=== PATIENT | male | born 1935 | race Two or more races ===

== ENCOUNTER 2018-11-06 02:20 | Emergency (ER) | payer SELFPAY ==
[~2018-11-06] VITALS: Ht 170.2 cm; Wt 72.6 kg
[2018-11-06 07:41] VITALS: BP 127/55
== END 2018-11-06 08:25 | disposition home or self-care (01) ==
LOC: EDBD 02:20 → ER 02:27
CPT/HCPCS: 72125; 72128

== ENCOUNTER 2019-02-13 02:06 | Emergency (ER) | payer OTHER, MEDICAID ==
[~2019-02-13] VITALS: Ht 167.6 cm; Wt 122.5 kg
[~2019-02-13 02:06] MED LIST: BACL10TA; CARV3.1240; FIN5T; FLUO10TA18; GABA-339; GABA-339 PO; HYDR1TAB97; LEVO75TA6; METF-370; MIRA50TA; NAP500T; OME20T PO; SITA100T7; TAMS0.4C36
[2019-02-13 02:56] LABS: Basophils # (auto) 0.1 uL; Eosinophils # (auto) 0.2 uL; Eosinophils % (auto) 3.2 % (0.0-7.0); Hematocrit 37.2 % (41.0-53.0); Hemoglobin 12.6 g/dL (13.5-17.5); Lymphocytes # (auto) 1.4 uL; Lymphocytes % (auto) 26.6 % (10.0-50.0); Mean Corpuscular Hemoglobin 29.7 pg (28.0-32.0); Mean Corpuscular Hgb Conc. 33.9 g/dL (32.0-36.0); Mean Corpuscular Volume 87.7 fL (80.0-100.0); Monocytes # (auto) 0.7 uL; Monocytes % (auto) 13.8 % (0.0-12.0); Neutrophils # (auto) 2.9 uL; Neutrophils % (auto) 55.4 % (37.0-80.0); Nucleated Red Blood Cells % 0.1 %; Platelet Count (auto) 189 10^3/uL (140-450); Red Blood Cells 4.24 10^6/uL (4.5-5.90); White Blood Cell 5.3 10^3/uL (4.4-10.8)
[2019-02-13 03:20] LABS: Alanine Aminotransferase 16 U/L (16-61); Albumin 3.3 g/dL (3.4-5.0); Anion Gap 6 (5-15); Aspartate Aminotransferase 15 U/L (15-37); BUN/Creatinine Ratio 29.5; Blood Urea Nitrogen 28 mg/dL (7-18); Calcium 8.5 mg/dL (8.5-10.1); Carbon Dioxide 27 mmol/L (21-32); Chloride 108 mmol/L (98-107); GFR African American 98 mL/min; GFR Non-African American 81 mL/min; Glucose 123 mg/dL (74-106); Potassium 3.7 mmol/L (3.5-5.1); Sodium 141 mmol/L (136-145)
[2019-02-13 03:25] LABS: Alkaline Phosphatase 61 U/L (45-117); Bilirubin, Total 0.3 mg/dL (0.2-1.0); Total Protein 6.6 g/dL (6.4-8.2)
[2019-02-13] MEDS ORDERED: MORPHINE SULF INJ 2 MG/ML SYRINGE 1ML IV ONE (03:30)
[2019-02-13] MEDS ORDERED: ASPirin-EC 325mg tab PO ONE (03:30)
[2019-02-13] MEDS ORDERED: NITROGLYCERIN 0.4 MG SL TAB SL ONE (03:30)
[2019-02-13] MEDS ORDERED: LORazepam 2MG/ML-1ML VIAL IV ONE (04:00)
[2019-02-13 04:18] LABS: INR 1.09 (0.9-1.15); Partial Thromboplastin Time 33.1 sec (23.78-33.04); Prothrombin Time 11.6 sec (9.27-12.13)
[2019-02-13 09:40] VITALS: BP 113/44
== END 2019-02-13 09:58 | disposition home or self-care (01) ==
LOC: EDBD 02:06 → ER 02:10
DX: I20.9 Angina pectoris, unspecified (principal); J44.9 Chronic obstructive pulmonary disease, unspecified; E11.9 Type 2 diabetes mellitus without complications; K21.9 Gastro-esophageal reflux disease without esophagitis; I25.2 Old myocardial infarction; E07.9 Disorder of thyroid, unspecified; I11.0 Hypertensive heart disease with heart failure; I50.9 Heart failure, unspecified; Z90.49 Acquired absence of other specified parts of digestive tract; Z95.1 Presence of aortocoronary bypass graft; Z88.0 Allergy status to penicillin; Z88.8 Allergy status to other drugs, medicaments and biological substances; Z79.899 Other long term (current) drug therapy
CPT/HCPCS: 36415; 71045; 80053; 82962; 83880; 84484; 85025; 85610; 85730; 93005; 94761; 96374; 99284; J2270

== ENCOUNTER 2019-08-21 08:13 | Inpatient (IN) | payer OTHER, MEDICAID ==
[~2019-08-21] VITALS: Ht 167.6 cm; Wt 118.7 kg
[2019-08-21 08:53] LABS: Basophils # (auto) 0 uL; Basophils % (auto) 0.3 % (0.0-2.0); Eosinophils # (auto) 0.1 uL; Eosinophils % (auto) 0.8 % (0.0-7.0); Hematocrit 43.6 % (41.0-53.0); Lymphocytes # (auto) 1.1 uL; Lymphocytes % (auto) 10.5 % (10.0-50.0); Mean Corpuscular Hemoglobin 30.9 pg (28.0-32.0); Mean Corpuscular Hgb Conc. 34.5 g/dL (32.0-36.0); Mean Corpuscular Volume 89.6 fL (80.0-100.0); Monocytes % (auto) 9.7 % (0.0-12.0); Neutrophils # (auto) 7.9 uL; Neutrophils % (auto) 78.7 % (37.0-80.0); Nucleated Red Blood Cells % 0.1 %; Platelet Count (auto) 228 10^3/uL (140-450); Red Blood Cells 4.86 10^6/uL (4.5-5.90); Red Cell Distribution Width 14.9 % (11.8-14.3); White Blood Cell 10.1 10^3/uL (4.4-10.8)
[2019-08-21] MEDS ORDERED: SODIUM CHLORIDE 0.9% 1,000 ML IV ONE (08:58)
[2019-08-21] MEDS ORDERED: PROMETHAZINE HCL 25 MG/ML 1ML IV PRN (09:00)
[2019-08-21] MEDS ORDERED: HYDROmorphone HCL 2 MG/ML VL IV ONE (09:00)
[2019-08-21] MEDS ORDERED: IOHEXOL 300 MG/ML 100ML BOTTLE IJ ONE (09:06)
[2019-08-21 09:14] LABS: Albumin 3.8 g/dL (3.4-5.0); Anion Gap 9 (5-15); BUN/Creatinine Ratio 23.4; Blood Urea Nitrogen 25 mg/dL (7-18); Calcium 9.2 mg/dL (8.5-10.1); Carbon Dioxide 32 mmol/L (21-32); Chloride 96 mmol/L (98-107); GFR African American 85 mL/min; GFR Non-African American 70 mL/min; Glucose 155 mg/dL (74-106); Potassium 3.5 mmol/L (3.5-5.1); Sodium 137 mmol/L (136-145)
[2019-08-21 09:27] LABS: Alanine Aminotransferase 15 U/L (16-61); Alkaline Phosphatase 68 U/L (45-117); Aspartate Aminotransferase 17 U/L (15-37); Bilirubin, Total 0.6 mg/dL (0.2-1.0); Magnesium 1.9 mg/dL (1.6-2.6); Total Protein 7.8 g/dL (6.4-8.2)
[2019-08-21 14:29] LABS: Urine Bacteria NONE SEEN /hpf (None Seen); Urine Blood Negative /uL (Negative); Urine Mucus FEW (None Seen); Urine Specific Gravity 1.032 (1.001-1.035); Urine WBC 5 /hpf (0 - 3)
[2019-08-21] MEDS ORDERED: GASTROGRAFIN 120 ML SOL ONE (15:21)
[2019-08-21] MEDS ORDERED: diphenhdrAMINE HCL 50 MG/1 ML VL IV ONE (16:00)
[2019-08-21] MEDS ORDERED: methylPREDNISolone SOD SUCC 125 MG/2 ML VL IV ONE (16:00)
[2019-08-21] MEDS ORDERED: NITROGLYCERIN 0.4 MG SL TAB SL PRN (18:45)
[2019-08-21] MEDS ORDERED: DEXTROSE (50%) 50ML SYRG IV PRN (19:00)
[2019-08-21] MEDS ORDERED: ONDANSETRON HCL 4 MG/2 ML VIAL IM PRN (19:00)
[2019-08-21 19:45] VITALS: BP 137/68
--- NOTE | 2019-08-21 19:45 | NUR ---
MS admit from [facility] admitted to tele/MS. Patient oriented to Augustina Sapp RN primary RN, unit, room, bed, and unit policies regarding patient care and visiting hours. Patient weighed by bedscale and encouraged to call if they need something. All questions and concerns addressed, patient verbalized understanding. Patient on LCS to left nare. Bedside commode at bedside. Bed is in lowest locked position with bed rails up x2 and call light is within reach of the patient.
[2019-08-21 20:32] VITALS: BP 137/68
--- NOTE | 2019-08-21 20:45 | NUR ---
CALLED MD FOR PAIN MEDICATION: Patient had abdominal pain that was 9/10 on pain scale asking for pain medication. Patient had no pain medication. Called Dr. Jimenez through PBX and connected to doctor Joni covering for Barbara. Orders received. To place and carry out orders. Addendum: 08/22/19 at 0701 by Augustina Sapp RN RN order for morphine 2mg [id number] prn iv.
[2019-08-21] MEDS: MORPHINE SULF INJ 2 MG/ML SYRINGE 1ML IV PRN (21:06)
[2019-08-21] MEDS: SODIUM CHLORIDE 0.9% 1,000 ML IV SCH (21:07)
[2019-08-21] MEDS: CARVEDILOL 3.125 MG TAB PO SCH (21:42)
[2019-08-21] MEDS ORDERED: INFLUENZA QUAD 2019-2020 0.5ml SYRG IM ONE (21:45)
--- NOTE | 2019-08-21 21:45 | NUR ---
EMERGENCY CONTACT NUMBERS PROVIDED: JESUS-DAUGHTER: [phone] ADRIANA-SON: [phone] ÓSCAR-DAUGHTER: [phone] PASSWORD: "DAUGHTER"
[2019-08-21] MEDS: InsuLIN REG 1unit/0.01ml Soln (100units/ml) SC SCH (23:37)
[2019-08-21] MEDS: ACCU-CHEK COMFORT CURVE STRIP VI SCH (23:37)
[2019-08-22 05:21] VITALS: BP 124/51
--- NOTE | 2019-08-22 05:30 | NUR ---
Large bowel movement: Patient had large bowel movement in bedside commode that is both brown liquidy stool and firm formed stools in commode. Patient stated "I'm feeling a lot better now that I had that bowel moment." Instructed patient that he is still NPO till cleared by the Doctor. Patient verbalized understanding. Resting in bed with breaths even and unlabored.
[2019-08-22] MEDS: InsuLIN REG 1unit/0.01ml Soln (100units/ml) SC SCH ×2 (06:00→11:36)
--- NOTE | 2019-08-22 06:54 | NUR ---
Patient drained 150ml of clear fluid from NG-tube suction at [facility].
[2019-08-22 06:57] LABS: Basophils # (auto) 0 uL; Basophils % (auto) 0.1 % (0.0-2.0); Eosinophils # (auto) 0 uL; Hematocrit 41.9 % (41.0-53.0); Hemoglobin 14.3 g/dL (13.5-17.5); Lymphocytes # (auto) 0.8 uL; Lymphocytes % (auto) 11.6 % (10.0-50.0); Mean Corpuscular Hemoglobin 30.5 pg (28.0-32.0); Mean Corpuscular Hgb Conc. 34.1 g/dL (32.0-36.0); Mean Corpuscular Volume 89.5 fL (80.0-100.0); Monocytes # (auto) 0.2 uL; Monocytes % (auto) 2.6 % (0.0-12.0); Neutrophils # (auto) 5.9 uL; Neutrophils % (auto) 85.7 % (37.0-80.0); Platelet Count (auto) 203 10^3/uL (140-450); Red Blood Cells 4.68 10^6/uL (4.5-5.90); Red Cell Distribution Width 15.1 % (11.8-14.3); White Blood Cell 6.9 10^3/uL (4.4-10.8)
[2019-08-22] MEDS: ACCU-CHEK COMFORT CURVE STRIP VI SCH ×2 (07:03→11:35)
[2019-08-22 07:13] LABS: BUN/Creatinine Ratio 34.4; Calcium 8.3 mg/dL (8.5-10.1); Potassium 3.2 mmol/L (3.5-5.1)
--- NOTE | 2019-08-22 07:30 | NUR ---
Opening Shift Note RECEIVED REPORT FROM NOC RN. Assumed care of patient, awake and alert. No S/S of distress/SOB or pain. BED IN LOWEST, LOCKED POSITION WITH SIDERAILS UP x2 AND CALL LIGHT WITHIN REACH. Instructed on POC and to call for assist PRN, will continue to monitor for changes Q1hr and PRN.
[2019-08-22 08:15] VITALS: BP 142/56
[2019-08-22] MEDS: MORPHINE SULF INJ 2 MG/ML SYRINGE 1ML IV PRN (08:38)
[2019-08-22 09:00] VITALS: BP 142/56
[2019-08-22] MEDS: CARVEDILOL 3.125 MG TAB PO SCH (09:44)
[2019-08-22] MEDS: SODIUM CHLORIDE 0.9% 1,000 ML IV SCH (09:54)
[2019-08-22] MEDS ORDERED: FINASTERIDE 5 MG TAB PO SCH (10:00)
[2019-08-22] MEDS ORDERED: ENOXAPARIN SOD 40 MG/0.4 ML SYRINGE SC SCH (10:00)
[2019-08-22] MEDS ORDERED: ACETAMINOPHEN 325 MG TAB PO PRN (12:00)
--- NOTE | 2019-08-22 12:15 | NUR ---
NGT removal NGT removed per MD/GROUP ACCOUNT DIRECTOR order following explanation and instruction to patient. Patient verbalized understanding prior to removal. Patient tolerated well.
--- NOTE | 2019-08-22 12:56 | NUR ---
o/c note called [facility] and reached answering service who is to contact their CM Delfino
[2019-08-22 13:00] VITALS: BP 139/71
--- NOTE | 2019-08-22 13:11 | NUR ---
o/c note: Asked primary RN to fax to Giovanny at [facility] [phone] H&P, d/c summary, for HH order
--- NOTE | 2019-08-22 13:41 | NUR ---
HOME HEALTH PACKET FAXED TO [facility] PER O/C HECTOR NASCIMENTO.
[2019-08-22 14:50] VITALS: BP 139/71
--- NOTE | 2019-08-23 15:31 | NUR ---
ANTONI Resendez at [facility] has accepted pt for safety eval
== END 2019-08-22 15:38 | disposition home health service (06) | DRG 389 ==
LOC: EDBD 08:13 → ER 08:13 → OVERFLOW 08:14 → CENTRAL 19:49
PROVIDERS: ADMIT Hospitalist; ATTEND Hospitalist
DX: K56.600 Partial intestinal obstruction, unspecified as to cause (principal); I50.22 Chronic systolic (congestive) heart failure; K43.0 Incisional hernia with obstruction, without gangrene; Z68.41 Body mass index [BMI] 40.0-44.9, adult; K80.20 Calculus of gallbladder without cholecystitis without obstruction; E11.65 Type 2 diabetes mellitus with hyperglycemia; E03.9 Hypothyroidism, unspecified; E11.51 Type 2 diabetes mellitus with diabetic peripheral angiopathy without gangrene; E66.01 Morbid (severe) obesity due to excess calories; I11.0 Hypertensive heart disease with heart failure; I25.10 Atherosclerotic heart disease of native coronary artery without angina pectoris; I25.708 Atherosclerosis of coronary artery bypass graft(s), unspecified, with other forms of angina pectoris; J44.9 Chronic obstructive pulmonary disease, unspecified; E11.42 Type 2 diabetes mellitus with diabetic polyneuropathy; K21.9 Gastro-esophageal reflux disease without esophagitis; Z85.038 Personal history of other malignant neoplasm of large intestine; Z90.49 Acquired absence of other specified parts of digestive tract; Z79.899 Other long term (current) drug therapy; Z88.0 Allergy status to penicillin; Z88.8 Allergy status to other drugs, medicaments and biological substances; Z91.041 Radiographic dye allergy status; I25.2 Old myocardial infarction
CPT/HCPCS: 36415; 71046; 74176; 74250; 80048; 80053; 81001; 82962; 83690; 83735; 84443; 84484; 85025; 93005; 94761; 96361; 96372; 96374; 96375; G0378; J1815

== ENCOUNTER 2022-04-08 13:21 | Inpatient (IN) | payer OTHER, MEDICAID ==
[~2022-04-08] VITALS: Ht 170.2 cm; Wt 120.8 kg
[~2022-04-08 13:21] MED LIST changes: -BACL10TA; -GABA-339
[2022-04-08] MEDS ORDERED: ONDANSETRON HCL 4 MG/2 ML VIAL IV ONE (13:45)
[2022-04-08] MEDS ORDERED: MORPHINE SULFATE INJ 2 MG/ml SYRG IV ONE (13:45)
[2022-04-08] MEDS ORDERED: SODIUM CHLORIDE 0.9% 1,000 ML IV ONE ×2 (13:45→17:30)
[2022-04-08 16:19] LABS: Basophils # (auto) 0.1 10 ^3/uL (0-0.2); Basophils % (auto) 0.5 % (0.0-2.0); Eosinophils # (auto) 0.1 10 ^3/uL (0-0.8); Hematocrit 43.7 % (41.0-53.0); Hemoglobin 14.8 g/dL (13.5-17.5); Lymphocytes # (auto) 1.6 10 ^3/uL (0.4-5.4); Mean Corpuscular Hgb Conc. 33.9 g/dL (32.0-36.0); Mean Corpuscular Volume 85.6 fL (80.0-100.0); Monocytes # (auto) 0.8 10 ^3/uL (0-1.3); Monocytes % (auto) 6.8 % (0.0-12.0); Neutrophils # (auto) 9.1 10 ^3/uL (1.6-8.6); Neutrophils % (auto) 77.7 % (37.0-80.0); Nucleated Red Blood Cells % 0.1 %; Red Blood Cells 5.11 10^6/uL (4.5-5.90); Red Cell Distribution Width 14.9 % (11.8-14.3); White Blood Cell 11.6 10^3/uL (4.4-10.8)
[2022-04-08 16:36] LABS: Albumin 3.4 g/dL (3.4-5.0); BUN/Creatinine Ratio 26.4; Calcium 9.4 mg/dL (8.5-10.1); Potassium 3.4 mmol/L (3.5-5.1)
[2022-04-08 16:39] LABS: Bilirubin, Total 0.5 mg/dL (0.2-1.0); Total Protein 7.7 g/dL (6.4-8.2)
[2022-04-08] MEDS ORDERED: ONDANSETRON HCL 4 MG/2 ML VIAL IV PRN (17:30)
[2022-04-08] MEDS ORDERED: NITROGLYCERIN 0.4 MG SL TAB SL PRN (17:30)
[2022-04-08] MEDS ORDERED: hydrALAZINE HCL 20 MG/ML VL IV PRN (17:30)
[2022-04-08] MEDS ORDERED: MORPHINE SULFATE INJ 2 MG/ml SYRG IV PRN (17:30)
[2022-04-08] MEDS ORDERED: PIPERACILLIN-TAZOB 3.375GM 100 ML IV SCH (18:00)
[2022-04-08 18:04] LABS: INR 1.1 (0.9-1.15)
[2022-04-08 21:30] LABS: Urine Bacteria FEW /hpf (None Seen); Urine Blood 2+ /uL (Negative); Urine WBC 1 /hpf (0 - 3)
[2022-04-08] MEDS: D5W/SOD CHL 0.45%/KCL 40MEQ 1,000 ML IV SCH (22:47)
[2022-04-09 05:00] VITALS: BP 126/48
[2022-04-09 05:55] LABS: INR 1.1 (0.9-1.15); Partial Thromboplastin Time 32.9 sec (23.6-33.0)
[2022-04-09 05:58] LABS: BUN/Creatinine Ratio 18.1; Calcium 8.4 mg/dL (8.5-10.1); Potassium 3.6 mmol/L (3.5-5.1)
[2022-04-09 06:03] LABS: Basophils # (auto) 0.1 10 ^3/uL (0-0.2); Basophils % (auto) 0.6 % (0.0-2.0); Eosinophils # (auto) 0.1 10 ^3/uL (0-0.8); Eosinophils % (auto) 1.6 % (0.0-7.0); Hematocrit 39.5 % (41.0-53.0); Hemoglobin 13.6 g/dL (13.5-17.5); Lymphocytes # (auto) 1.4 10 ^3/uL (0.4-5.4); Lymphocytes % (auto) 16.6 % (10.0-50.0); Mean Corpuscular Hemoglobin 29.2 pg (28.0-32.0); Mean Corpuscular Hgb Conc. 34.4 g/dL (32.0-36.0); Mean Corpuscular Volume 84.9 fL (80.0-100.0); Monocytes # (auto) 0.9 10 ^3/uL (0-1.3); Monocytes % (auto) 10.1 % (0.0-12.0); Neutrophils # (auto) 6.2 10 ^3/uL (1.6-8.6); Neutrophils % (auto) 71.1 % (37.0-80.0); Red Blood Cells 4.65 10^6/uL (4.5-5.90); Red Cell Distribution Width 14.5 % (11.8-14.3); White Blood Cell 8.7 10^3/uL (4.4-10.8)
[2022-04-09] MEDS: MORPHINE SULFATE INJ 2 MG/ml SYRG IV PRN ×4 (06:43→23:49)
[2022-04-09 08:00] VITALS: BP 152/57
[2022-04-09 08:43] VITALS: BP 152/57
[2022-04-09] MEDS ORDERED: levoFLOXacin 500MG 100 ML IV ONE (09:52)
[2022-04-09] MEDS: levoFLOXacin 500MG 100 ML IV SCH (11:00)
[2022-04-09] MEDS ORDERED: SUCCINYLCHOLINE CHLORIDE 20 MG/ML 10ML VIAL IV ONE (11:37)
[2022-04-09] MEDS ORDERED: MIDAZOLAM HCL 2MG/2ML 2ml VIAL (1mg/ml) ONE (11:52)
[2022-04-09] MEDS ORDERED: fentaNYL CITRATE 5 ML ONE (11:56)
[2022-04-09] MEDS ORDERED: BUPIVACAINE W/ EPINEPH 0.25% INJ 50ML MDV ONE (12:50)
[2022-04-09] MEDS ORDERED: PROPOFOL 10 MG/ML 20 ML IV ONE (13:02)
[2022-04-09] MEDS ORDERED: LIDOCAINE 2% (LOCAL ANESTH.) PF 5ml SDV ONE (13:02)
[2022-04-09] MEDS ORDERED: ONDANSETRON HCL 4 MG/2 ML VIAL ONE (13:02)
[2022-04-09] MEDS ORDERED: SUGAMMADEX 200mg/2ml Vial (100MG/ML) IV ONE (13:07)
[2022-04-09] MEDS ORDERED: HYDROmorphone HCL 2 MG/ML VL/or syr IV PRN ×2 (13:45)
[2022-04-09] MEDS ORDERED: ONDANSETRON HCL 4 MG/2 ML VIAL IV PRN (13:45)
[2022-04-09 16:40] VITALS: BP 129/55
[2022-04-09] MEDS: D5W/SOD CHL 0.45%/KCL 40MEQ 1,000 ML IV SCH ×2 (16:43→20:40)
[2022-04-09 22:00] VITALS: BP 133/50
[2022-04-09] MEDS ORDERED: MORPHINE SULFATE INJ 2 MG/ml SYRG IV ONE (22:00)
[2022-04-10] MEDS: MORPHINE SULFATE INJ 2 MG/ml SYRG IV PRN ×2 (03:47→09:21)
[2022-04-10 05:00] VITALS: BP 150/42
[2022-04-10 05:04] LABS: Basophils # (auto) 0.1 10 ^3/uL (0-0.2); Basophils % (auto) 1.1 % (0.0-2.0); Eosinophils # (auto) 0.1 10 ^3/uL (0-0.8); Eosinophils % (auto) 0.7 % (0.0-7.0); Hematocrit 38.6 % (41.0-53.0); Hemoglobin 13.3 g/dL (13.5-17.5); Lymphocytes # (auto) 1.3 10 ^3/uL (0.4-5.4); Lymphocytes % (auto) 13.7 % (10.0-50.0); Mean Corpuscular Hemoglobin 29.6 pg (28.0-32.0); Mean Corpuscular Hgb Conc. 34.5 g/dL (32.0-36.0); Mean Corpuscular Volume 85.8 fL (80.0-100.0); Monocytes # (auto) 1.1 10 ^3/uL (0-1.3); Neutrophils # (auto) 6.6 10 ^3/uL (1.6-8.6); Neutrophils % (auto) 72.5 % (37.0-80.0); Nucleated Red Blood Cells % 0.1 %; Red Cell Distribution Width 14.6 % (11.8-14.3); White Blood Cell 9.2 10^3/uL (4.4-10.8)
[2022-04-10 05:24] LABS: Calcium 7.9 mg/dL (8.5-10.1); Potassium 3.9 mmol/L (3.5-5.1)
[2022-04-10] MEDS: D5W/SOD CHL 0.45%/KCL 40MEQ 1,000 ML IV SCH (06:22)
[2022-04-10 08:00] VITALS: BP 135/55
[2022-04-10] MEDS ORDERED: SITA100T7 PO (08:34)
[2022-04-10] MEDS ORDERED: MIRA50TA PO (08:34)
[2022-04-10] MEDS ORDERED: SIMV-13 PO (08:34)
[2022-04-10] MEDS ORDERED: BISA-65 PO (08:34)
[2022-04-10] MEDS ORDERED: METF-370 PO (08:34)
[2022-04-10] MEDS ORDERED: TAMS1CAP25 PO (08:34)
[2022-04-10] MEDS ORDERED: PIO30T PO (08:34)
[2022-04-10] MEDS: levoFLOXacin 500MG 100 ML IV SCH (09:21)
[2022-04-10] MEDS: PANTOPRAZOLE 40 MG/10 ML VIAL INJ IV SCH ×2 (09:22→09:35)
[2022-04-10 09:23] VITALS: BP 135/55
[2022-04-10] MEDS ORDERED: MORPHINE SULFATE INJ 2 MG/ml SYRG IV PRN (09:30)
[2022-04-10] MEDS: HYDROcodone-ACET 10/325MG TAB PO PRN ×3 (11:37→21:18)
[2022-04-10 13:00] VITALS: BP 163/55
[2022-04-10] MEDS: TROLAMINE SALICYLATE 10% TOP CREAM TOP PRN (13:09)
[2022-04-10 16:34] VITALS: BP 180/60
[2022-04-10 22:00] VITALS: BP_SYST 111; BP_SYST 141; BP_DIAS 57; BP_DIAS 73
[2022-04-11] MEDS: TROLAMINE SALICYLATE 10% TOP CREAM TOP PRN (00:03)
[2022-04-11] MEDS: D5W/SOD CHL 0.45%/KCL 40MEQ 1,000 ML IV SCH ×2 (02:05→18:18)
[2022-04-11 05:00] VITALS: BP 124/56
[2022-04-11] MEDS: HYDROcodone-ACET 10/325MG TAB PO PRN ×3 (05:15→20:55)
[2022-04-11 06:41] LABS: Basophils # (auto) 0 10 ^3/uL (0-0.2); Basophils % (auto) 0.3 % (0.0-2.0); Eosinophils # (auto) 0 10 ^3/uL (0-0.8); Hematocrit 40.4 % (41.0-53.0); Hemoglobin 13.8 g/dL (13.5-17.5); Lymphocytes # (auto) 1.4 10 ^3/uL (0.4-5.4); Lymphocytes % (auto) 11.7 % (10.0-50.0); Mean Corpuscular Hemoglobin 28.9 pg (28.0-32.0); Mean Corpuscular Hgb Conc. 34.1 g/dL (32.0-36.0); Mean Corpuscular Volume 84.7 fL (80.0-100.0); Monocytes # (auto) 2.1 10 ^3/uL (0-1.3); Monocytes % (auto) 17.7 % (0.0-12.0); Neutrophils # (auto) 8.4 10 ^3/uL (1.6-8.6); Neutrophils % (auto) 70.3 % (37.0-80.0); Red Blood Cells 4.77 10^6/uL (4.5-5.90); Red Cell Distribution Width 14.6 % (11.8-14.3)
[2022-04-11 07:01] LABS: BUN/Creatinine Ratio 13.2; Calcium 8.4 mg/dL (8.5-10.1); Potassium 3.8 mmol/L (3.5-5.1)
[2022-04-11 09:34] VITALS: BP 135/48
[2022-04-11] MEDS: levoFLOXacin 500MG 100 ML IV SCH (10:01)
[2022-04-11] MEDS: PANTOPRAZOLE 40 MG/10 ML VIAL INJ IV SCH (10:01)
[2022-04-11] MEDS: MORPHINE SULFATE INJ 2 MG/ml SYRG IV PRN ×3 (12:52→23:11)
[2022-04-11 12:59] VITALS: BP 132/63
[2022-04-11 17:00] VITALS: BP 141/63
[2022-04-11 22:00] VITALS: BP 123/72
[2022-04-12] MEDS: HYDROcodone-ACET 10/325MG TAB PO PRN ×3 (00:59→16:14)
[2022-04-12] MEDS: D5W/SOD CHL 0.45%/KCL 40MEQ 1,000 ML IV SCH ×2 (02:02→09:12)
[2022-04-12] MEDS: MORPHINE SULFATE INJ 2 MG/ml SYRG IV PRN ×2 (03:06→11:44)
[2022-04-12 05:00] VITALS: BP 147/66
[2022-04-12 06:34] LABS: Basophils # (auto) 0 10 ^3/uL (0-0.2); Basophils % (auto) 0.3 % (0.0-2.0); Eosinophils # (auto) 0.2 10 ^3/uL (0-0.8); Hematocrit 38.5 % (41.0-53.0); Hemoglobin 13.2 g/dL (13.5-17.5); Lymphocytes # (auto) 1.1 10 ^3/uL (0.4-5.4); Lymphocytes % (auto) 14.9 % (10.0-50.0); Mean Corpuscular Hgb Conc. 34.2 g/dL (32.0-36.0); Mean Corpuscular Volume 84.7 fL (80.0-100.0); Monocytes # (auto) 1.2 10 ^3/uL (0-1.3); Monocytes % (auto) 15.7 % (0.0-12.0); Neutrophils # (auto) 5.2 10 ^3/uL (1.6-8.6); Neutrophils % (auto) 67.1 % (37.0-80.0); Nucleated Red Blood Cells % 0.1 %; Red Blood Cells 4.54 10^6/uL (4.5-5.90); Red Cell Distribution Width 14.1 % (11.8-14.3); White Blood Cell 7.7 10^3/uL (4.4-10.8)
[2022-04-12 06:35] LABS: BUN/Creatinine Ratio 15.4; Calcium 8.4 mg/dL (8.5-10.1)
[2022-04-12 09:00] VITALS: BP 141/58
[2022-04-12] MEDS: PANTOPRAZOLE 40 MG/10 ML VIAL INJ IV SCH (09:02)
[2022-04-12] MEDS ORDERED: CEFTRIAXONE SODIUM 2 GM in D5W 5% 50 ML IV SCH (10:00)
[2022-04-12] MEDS ORDERED: levoFLOXacin 750MG 150 ML IV SCH (10:00)
[2022-04-12 13:00] VITALS: BP 118/44
[2022-04-12] MEDS ORDERED: INDOMETHACIN 25 MG CAP PO SCH (16:00)
[2022-04-12 17:00] VITALS: BP_SYST 127; BP_SYST 156; BP_DIAS 65; BP_DIAS 77
== END 2022-04-12 19:00 | DRG 355 ==
LOC: EDBD 13:21 → ER 13:27 → OVERFLOW 17:24 → WEST WING 21:49
PROVIDERS: ADMIT Internal Medicine; ATTEND Internal Medicine
PROC: 0WQF0ZZ Repair Abdominal Wall, Open Approach (ICD-10-PCS; principal; 2022-04-09 11:52)
DX: K42.0 Umbilical hernia with obstruction, without gangrene (principal); E78.5 Hyperlipidemia, unspecified; E03.9 Hypothyroidism, unspecified; M17.12 Unilateral primary osteoarthritis, left knee; E11.42 Type 2 diabetes mellitus with diabetic polyneuropathy; E66.9 Obesity, unspecified; I11.0 Hypertensive heart disease with heart failure; I25.10 Atherosclerotic heart disease of native coronary artery without angina pectoris; Z20.822 Contact with and (suspected) exposure to COVID-19; I45.10 Unspecified right bundle-branch block; I50.9 Heart failure, unspecified; J44.9 Chronic obstructive pulmonary disease, unspecified; K43.6 Other and unspecified ventral hernia with obstruction, without gangrene; K21.9 Gastro-esophageal reflux disease without esophagitis; R53.81 Other malaise; M10.9 Gout, unspecified; Z79.84 Long term (current) use of oral hypoglycemic drugs; Z79.899 Other long term (current) drug therapy; Z80.0 Family history of malignant neoplasm of digestive organs; Z82.49 Family history of ischemic heart disease and other diseases of the circulatory system; Z83.3 Family history of diabetes mellitus; Z87.11 Personal history of peptic ulcer disease; Z87.442 Personal history of urinary calculi; Z95.1 Presence of aortocoronary bypass graft; Z88.0 Allergy status to penicillin; Z88.8 Allergy status to other drugs, medicaments and biological substances; Z91.041 Radiographic dye allergy status
CPT/HCPCS: 36415; 71045; 73562; 73721; 74176; 80048; 80053; 81001; 83605; 83690; 84484; 85025; 85610; 85730; 88302; 93005; 93306; 93970; 96361; 96374; 96375; 97110; 97116; 97530; 99291; C1781; C9113; G0378; J0330; J0696; J1956; J2001; J2250; J2405; J2704; J7060

== ENCOUNTER 2022-04-29 03:56 | Emergency (ER) | payer OTHER, MEDICAID ==
[~2022-04-29] VITALS: Ht 170.2 cm; Wt 129.3 kg
[~2022-04-29 03:56] MED LIST changes: +BISA-65 PO; -CARV3.1240; -FIN5T; -HYDR1TAB97; -LEVO75TA6; -METF-370; +METF-370 PO; -MIRA50TA; +MIRA50TA PO; -NAP500T; -OME20T PO; +PIO30T PO; +SIMV-13 PO; -SITA100T7; +SITA100T7 PO; -TAMS0.4C36; +TAMS1CAP25 PO
[2022-04-29 04:39] LABS: Basophils # (auto) 0 10 ^3/uL (0-0.2); Basophils % (auto) 0.5 % (0.0-2.0); Eosinophils # (auto) 0.3 10 ^3/uL (0-0.8); Eosinophils % (auto) 5.3 % (0.0-7.0); Hematocrit 40.9 % (41.0-53.0); Hemoglobin 13.8 g/dL (13.5-17.5); Lymphocytes # (auto) 1.4 10 ^3/uL (0.4-5.4); Lymphocytes % (auto) 22.1 % (10.0-50.0); Mean Corpuscular Hemoglobin 28.6 pg (28.0-32.0); Mean Corpuscular Hgb Conc. 33.7 g/dL (32.0-36.0); Mean Corpuscular Volume 84.9 fL (80.0-100.0); Monocytes # (auto) 0.6 10 ^3/uL (0-1.3); Monocytes % (auto) 10.4 % (0.0-12.0); Neutrophils # (auto) 3.9 10 ^3/uL (1.6-8.6); Neutrophils % (auto) 61.7 % (37.0-80.0); Nucleated Red Blood Cells % 0.1 %; Red Blood Cells 4.82 10^6/uL (4.5-5.90); Red Cell Distribution Width 14.6 % (11.8-14.3); White Blood Cell 6.2 10^3/uL (4.4-10.8)
[2022-04-29 04:58] LABS: Albumin 3.2 g/dL (3.4-5.0); BUN/Creatinine Ratio 22.3; Calcium 8.6 mg/dL (8.5-10.1); Potassium 3.8 mmol/L (3.5-5.1)
[2022-04-29 05:01] LABS: Bilirubin, Total 0.4 mg/dL (0.2-1.0); Total Protein 7.1 g/dL (6.4-8.2)
[2022-04-29 08:11] VITALS: BP 131/61
== END 2022-04-29 09:01 | disposition home or self-care (01) ==
LOC: EDSEX 03:56 → EDBD 03:56 → ER 03:56
DX: R10.33 Periumbilical pain (principal); E44.1 Mild protein-calorie malnutrition; Z68.41 Body mass index [BMI] 40.0-44.9, adult
CPT/HCPCS: 36415; 74176; 80053; 85025; 93005

== ENCOUNTER 2022-12-06 01:22 | Inpatient (IN) | payer OTHER, MEDICAID ==
[~2022-12-06] VITALS: Ht 167.6 cm; Wt 120.0 kg
[2022-12-06 02:18] LABS: Basophils # (auto) 0.1 10 ^3/uL (0-0.2); Basophils % (auto) 1.1 % (0.0-2.0); Eosinophils # (auto) 0.2 10 ^3/uL (0-0.8); Eosinophils % (auto) 3.2 % (0.0-7.0); Hematocrit 39.1 % (41.0-53.0); Lymphocytes % (auto) 27.2 % (10.0-50.0); Mean Corpuscular Hemoglobin 28.6 pg (28.0-32.0); Mean Corpuscular Hgb Conc. 33.1 g/dL (32.0-36.0); Mean Corpuscular Volume 86.5 fL (80.0-100.0); Monocytes # (auto) 0.9 10 ^3/uL (0-1.3); Monocytes % (auto) 12.3 % (0.0-12.0); Neutrophils # (auto) 4.1 10 ^3/uL (1.6-8.6); Neutrophils % (auto) 56.2 % (37.0-80.0); Nucleated Red Blood Cells % 0.2 %; Red Blood Cells 4.52 10^6/uL (4.5-5.90); Red Cell Distribution Width 14.1 % (11.8-14.3); White Blood Cell 7.3 10^3/uL (4.4-10.8)
[2022-12-06] MEDS ORDERED: MORPHINE SULFATE 4 MG/ML SYR/VIAL IV ONE (02:30)
[2022-12-06] MEDS ORDERED: ONDANSETRON HCL 4 MG/2 ML VIAL IV ONE (02:30)
[2022-12-06 02:31] LABS: INR 1.07 (0.9-1.15); Partial Thromboplastin Time 33.4 sec (24.6-33.4)
[2022-12-06 02:32] LABS: Albumin 3.2 g/dL (3.4-5.0); BUN/Creatinine Ratio 29.2; Magnesium 1.8 mg/dL (1.6-2.6); Potassium 3.7 mmol/L (3.5-5.1)
[2022-12-06 02:35] LABS: Bilirubin, Total 0.4 mg/dL (0.2-1.0); Total Protein 6.6 g/dL (6.4-8.2)
[2022-12-06] MEDS ORDERED: NITROGLYCERIN 0.4 MG SL TAB SL PRN (06:15)
[2022-12-06] MEDS ORDERED: HYDROcodone-ACET 5/325MG TAB PO PRN (06:15)
[2022-12-06] MEDS ORDERED: DOCUSATE SOD 100 MG CAP PO PRN (06:15)
[2022-12-06] MEDS ORDERED: ACETAMINOPHEN 325 MG TAB PO PRN (06:15)
[2022-12-06] MEDS ORDERED: DEXTROSE (50%) 50ML SYRG IV PRN (06:15)
[2022-12-06] MEDS ORDERED: MORPHINE SULFATE INJ 2 MG/ml SYRG IV PRN ×2 (06:15)
[2022-12-06] MEDS ORDERED: ONDANSETRON HCL 4 MG/2 ML VIAL IV PRN (06:15)
[2022-12-06] MEDS: ACCU-CHEK COMFORT CURVE STRIP VI SCH ×3 (06:53→18:28)
[2022-12-06] MEDS: InsuLIN REG 1unit/0.01ml Soln (100units/ml) SC SCH ×3 (06:53→18:25)
[2022-12-06 07:37] LABS: Albumin 3.1 g/dL (3.4-5.0); Calcium 8.4 mg/dL (8.5-10.1); Potassium 3.7 mmol/L (3.5-5.1)
[2022-12-06 07:38] LABS: Basophils # (auto) 0.1 10 ^3/uL (0-0.2); Basophils % (auto) 1.1 % (0.0-2.0); Eosinophils # (auto) 0.3 10 ^3/uL (0-0.8); Eosinophils % (auto) 4.8 % (0.0-7.0); Hematocrit 38.4 % (41.0-53.0); Hemoglobin 12.6 g/dL (13.5-17.5); Lymphocytes # (auto) 1.9 10 ^3/uL (0.4-5.4); Lymphocytes % (auto) 30.4 % (10.0-50.0); Mean Corpuscular Hemoglobin 28.4 pg (28.0-32.0); Mean Corpuscular Hgb Conc. 32.9 g/dL (32.0-36.0); Mean Corpuscular Volume 86.4 fL (80.0-100.0); Monocytes # (auto) 0.7 10 ^3/uL (0-1.3); Neutrophils # (auto) 3.2 10 ^3/uL (1.6-8.6); Neutrophils % (auto) 51.7 % (37.0-80.0); Nucleated Red Blood Cells % 0.2 %; Red Blood Cells 4.45 10^6/uL (4.5-5.90); Red Cell Distribution Width 14.4 % (11.8-14.3); White Blood Cell 6.2 10^3/uL (4.4-10.8)
[2022-12-06 07:42] LABS: BUN/Creatinine Ratio 31.7; Bilirubin, Total 0.4 mg/dL (0.2-1.0); Total Protein 6.2 g/dL (6.4-8.2)
[2022-12-06] MEDS ORDERED: ASPirin 81 mg TAB PO SCH (10:00)
[2022-12-06] MEDS ORDERED: SODIUM CHLOR 0.9% PF (SALINE LOCK) 10ML VIAL/SYR IV SCH (14:00)
[2022-12-06 20:00] VITALS: BP 114/72
[2022-12-06] MEDS ORDERED: InsuLIN REG 1unit/0.01ml Soln (100units/ml) SC SCH (22:00)
== END 2022-12-06 20:18 | disposition home or self-care (01) | DRG 313 ==
LOC: EDBD 01:22 → ER 01:22 → TELE 06:17
PROVIDERS: ADMIT Nurse Practitioner Family; ATTEND Internal Medicine
DX: R07.89 Other chest pain (principal); Z68.41 Body mass index [BMI] 40.0-44.9, adult; E11.9 Type 2 diabetes mellitus without complications; E66.01 Morbid (severe) obesity due to excess calories; I11.0 Hypertensive heart disease with heart failure; I25.10 Atherosclerotic heart disease of native coronary artery without angina pectoris; I50.9 Heart failure, unspecified; J44.9 Chronic obstructive pulmonary disease, unspecified; Z80.0 Family history of malignant neoplasm of digestive organs; Z82.49 Family history of ischemic heart disease and other diseases of the circulatory system; I25.2 Old myocardial infarction; Z88.0 Allergy status to penicillin; Z88.8 Allergy status to other drugs, medicaments and biological substances; Z95.1 Presence of aortocoronary bypass graft
CPT/HCPCS: 36415; 71045; 80053; 82962; 83036; 83735; 83880; 84484; 85025; 85610; 85730; 93005; 93306; 96374; 96375; G0378; J1815; J2405

== ENCOUNTER 2023-06-14 08:37 | Inpatient (IN) | payer OTHER, MEDICAID ==
[~2023-06-14] VITALS: Ht 177.8 cm; Wt 114.0 kg
[~2023-06-14 08:37] MED LIST changes: -SIMV-13 PO; +SIMV40TA18 PO
[2023-06-14] MEDS ORDERED: NITROGLYCERIN 0.4 MG SL TAB SL ONE (08:45)
[2023-06-14 09:14] LABS: Basophils # (auto) 0.1 10 ^3/uL (0-0.2); Eosinophils # (auto) 0.2 10 ^3/uL (0-0.8); Hematocrit 39.9 % (41.0-53.0); Hemoglobin 13.1 g/dL (13.5-17.5); Lymphocytes # (auto) 1.6 10 ^3/uL (0.4-5.4); Lymphocytes % (auto) 27.5 % (10.0-50.0); Mean Corpuscular Hemoglobin 28.4 pg (28.0-32.0); Mean Corpuscular Hgb Conc. 32.9 g/dL (32.0-36.0); Mean Corpuscular Volume 86.4 fL (80.0-100.0); Monocytes # (auto) 0.6 10 ^3/uL (0-1.3); Monocytes % (auto) 10.1 % (0.0-12.0); Neutrophils # (auto) 3.4 10 ^3/uL (1.6-8.6); Neutrophils % (auto) 58.4 % (37.0-80.0); Nucleated Red Blood Cells % 0.2 %; Red Blood Cells 4.62 10^6/uL (4.5-5.90); Red Cell Distribution Width 14.9 % (11.8-14.3); White Blood Cell 5.8 10^3/uL (4.4-10.8)
[2023-06-14 09:27] LABS: Albumin 3.1 g/dL (3.4-5.0); Calcium 8.5 mg/dL (8.5-10.1); Potassium 3.4 mmol/L (3.5-5.1)
[2023-06-14 09:31] LABS: BUN/Creatinine Ratio 20.4 (10.0-20.0); Bilirubin, Total 0.4 mg/dL (0.2-1.0); Total Protein 6.5 g/dL (6.4-8.2)
[2023-06-14 09:37] LABS: INR 1.07 (0.9-1.15); Partial Thromboplastin Time 33.8 SEC (24.5-34.5); Prothrombin Time 11.2 sec (9.3-11.8)
[2023-06-14] MEDS ORDERED: ENOXAPARIN SOD 120 MG/0.8 ML SYRINGE SC ONE (10:15)
[2023-06-14 11:50] VITALS: PULSE 70; RESP 11; O2SAT 98
[2023-06-14] MEDS ORDERED: ONDANSETRON HCL 4 MG/2 ML VIAL IV PRN (15:30)
[2023-06-14] MEDS ORDERED: NITROGLYCERIN 0.4 MG SL TAB SL PRN (15:30)
[2023-06-14] MEDS ORDERED: ACETAMINOPHEN 325 MG TAB PO PRN (15:30)
[2023-06-14] MEDS ORDERED: DEXTROSE (50%) 50ML SYRG IV PRN (15:30)
[2023-06-14] MEDS ORDERED: MORPHINE SULFATE 4 MG/ML SYR/VIAL IV PRN (15:30)
[2023-06-14] MEDS ORDERED: IPRATROPIUM BROM 0.5 MG/2.5ML INH SOL NEB PRN (16:00)
[2023-06-14] MEDS ORDERED: ALBUTEROL SULF 2.5 MG/0.5ML(0.5%) NEB SOLN NEB PRN (16:00)
[2023-06-14 16:02] VITALS: BP 127/47; PULSE 70; RESP 11; TEMP 97.9; O2SAT 98
[2023-06-14] MEDS ORDERED: ASPirin 81 mg TAB PO SCH (16:09)
[2023-06-14] MEDS ORDERED: ASPirin 81 mg TAB PO ONE (16:30)
[2023-06-14 16:39] LABS: INR 1.15 (0.9-1.15)
[2023-06-14] MEDS ORDERED: HEPARIN DRIP/D5W 100UNITS/ML 250 ML IV SCH (17:30)
[2023-06-14] MEDS: ACCU-CHEK COMFORT CURVE STRIP VI SCH ×2 (17:51→22:00)
[2023-06-14] MEDS: InsuLIN REG 1unit/0.01ml Soln (100units/ml) SC SCH ×2 (17:51→22:00)
[2023-06-14 19:03] VITALS: O2SAT 96
[2023-06-14 19:30] VITALS: PULSE 73; RESP 18; O2SAT 9
[2023-06-14] MEDS ORDERED: ENOXAPARIN SOD 100 MG/1 ML SYRINGE SC SCH (22:00)
[2023-06-14] MEDS ORDERED: ENOXAPARIN SOD 120 MG/0.8 ML SYRINGE SC SCH (22:00)
[2023-06-14] MEDS ORDERED: ATORVASTATIN 20 MG TAB PO SCH ×2 (22:00)
[2023-06-14] MEDS: METOPROLOL TARTRATE 25 MG TAB PO SCH (23:20)
[2023-06-14 23:52] VITALS: BP 159/43; PULSE 54; PULSE 68; RESP 18; TEMP 97.9; O2SAT 95
[2023-06-15] VITALS (8 sets, daily range): BP systolic 107–128; BP diastolic 32–79; PULSE 48–59; RESP 16–20; TEMP 97.6–98.4; O2SAT 96–100
[2023-06-15 00:32] LABS: Urine Bacteria FEW /hpf (None Seen); Urine Blood Negative /uL (Negative); Urine Clarity Clear (Clear); Urine Color Colorless (Yellow); Urine Protein, UAD Negative (Negative); Urine Specific Gravity 1.011 (1.001-1.035); Urine Urobilinogen Normal (Negative); Urine WBC 1 /hpf (0 - 3); Urine pH 7.5 (5.0-8.0)
[2023-06-15 01:08] LABS: INR 1.18 (0.9-1.15); Prothrombin Time 12.3 sec (9.3-11.8)
[2023-06-15 01:13] LABS: Partial Thromboplastin Time 75.1 SEC (24.5-34.5)
[2023-06-15 03:03] LABS: Urine Bacteria NONE SEEN /hpf (None Seen); Urine Blood Negative /uL (Negative); Urine Clarity Clear (Clear); Urine Color Colorless (Yellow); Urine Protein, UAD Negative (Negative); Urine Specific Gravity 1.009 (1.001-1.035); Urine Urobilinogen Normal (Negative); Urine WBC <1 /hpf (0 - 3); Urine pH 7.5 (5.0-8.0)
[2023-06-15] MEDS: FLUoxetine HCL 10 MG CAP PO SCH (06:08)
[2023-06-15] MEDS: ACCU-CHEK COMFORT CURVE STRIP VI SCH ×4 (06:43→21:21)
[2023-06-15] MEDS: InsuLIN REG 1unit/0.01ml Soln (100units/ml) SC SCH ×4 (06:43→21:29)
[2023-06-15 07:05] LABS: Calcium 8.7 mg/dL (8.5-10.1); Magnesium 1.8 mg/dL (1.6-2.6); Potassium 3.7 mmol/L (3.5-5.1)
[2023-06-15 07:09] LABS: BUN/Creatinine Ratio 18.7 (10.0-20.0); Bilirubin, Total 0.5 mg/dL (0.2-1.0)
[2023-06-15 07:43] LABS: Basophils # (auto) 0.1 10 ^3/uL (0-0.2); Basophils % (auto) 1.3 % (0.0-2.0); Eosinophils # (auto) 0.2 10 ^3/uL (0-0.8); Hematocrit 37.1 % (41.0-53.0); Hemoglobin 12.6 g/dL (13.5-17.5); Lymphocytes # (auto) 1.3 10 ^3/uL (0.4-5.4); Lymphocytes % (auto) 23.3 % (10.0-50.0); Mean Corpuscular Hgb Conc. 33.9 g/dL (32.0-36.0); Mean Corpuscular Volume 85.5 fL (80.0-100.0); Monocytes # (auto) 0.6 10 ^3/uL (0-1.3); Neutrophils # (auto) 3.5 10 ^3/uL (1.6-8.6); Neutrophils % (auto) 61.4 % (37.0-80.0); Nucleated Red Blood Cells % 0.1 %; Red Blood Cells 4.34 10^6/uL (4.5-5.90); Red Cell Distribution Width 14.7 % (11.8-14.3); White Blood Cell 5.8 10^3/uL (4.4-10.8)
[2023-06-15 07:46] LABS: INR 1.16 (0.9-1.15); Partial Thromboplastin Time 63.8 SEC (24.5-34.5); Prothrombin Time 12.1 sec (9.3-11.8)
[2023-06-15] MEDS: ASPirin 81 mg TAB PO SCH (09:53)
[2023-06-15] MEDS: BISACODYL 5 MG EC TAB PO SCH (09:53)
[2023-06-15] MEDS: METOPROLOL TARTRATE 25 MG TAB PO SCH ×2 (09:54→21:21)
[2023-06-15] MEDS: LISINOPRIL 5 MG TAB PO SCH (09:55)
[2023-06-15] MEDS: POTASSIUM EFFERVESENT TAB 25 MEQ PO SCH (09:56)
[2023-06-15] MEDS ORDERED: TAMSULOSIN HYDROCHLORIDE 0.4 MG CAP PO SCH (10:00)
[2023-06-15] MEDS ORDERED: MIRABEGRON BASE PO SCH (10:00)
[2023-06-15] MEDS ORDERED: PANTOPRAZOLE 40 MG/10 ML VIAL INJ IV SCH (10:00)
[2023-06-15] MEDS: TAMSULOSIN HYDROCHLORIDE 0.4 MG CAP PO SCH (12:10)
[2023-06-15] MEDS ORDERED: FAMOTIDINE (10MG/ML) 2ML VL IV ONE (14:45)
[2023-06-15] MEDS ORDERED: PANTOPRAZOLE 40 MG/10 ML VIAL INJ IV ONE (14:45)
[2023-06-15 15:58] LABS: Urine Bacteria NONE SEEN /hpf (None Seen); Urine Blood Negative /uL (Negative); Urine Clarity Clear (Clear); Urine Color Yellow (Yellow); Urine Protein, UAD Negative (Negative); Urine Specific Gravity 1.014 (1.001-1.035); Urine Urobilinogen Normal (Negative); Urine WBC <1 /hpf (0 - 3)
[2023-06-15] MEDS ORDERED: HYDROcodone-ACET 5/325MG TAB PO ONE (17:15)
[2023-06-15] MEDS: ATORVASTATIN 20 MG TAB PO SCH (21:21)
[2023-06-16] VITALS (11 sets, daily range): BP systolic 101–166; BP diastolic 46–93; PULSE 50–82; RESP 13–20; TEMP 96.7–98.3; O2SAT 94–98
[2023-06-16] MEDS ORDERED: predniSONE 20 MG TAB PO SCH
[2023-06-16] MEDS: ACCU-CHEK COMFORT CURVE STRIP VI SCH ×4 (05:57→22:41)
[2023-06-16] MEDS: InsuLIN REG 1unit/0.01ml Soln (100units/ml) SC SCH ×4 (05:57→22:40)
[2023-06-16] MEDS: FLUoxetine HCL 10 MG CAP PO SCH (05:57)
[2023-06-16] MEDS ORDERED: predniSONE 20 MG TAB PO ONE ×2 (06:30→13:00)
[2023-06-16] MEDS ORDERED: diphenhdrAMINE HCL 25 MG CAP PO ONE ×3 (06:30→13:00)
[2023-06-16] MEDS ORDERED: PANTOPRAZOLE 40 MG TAB PO SCH (10:00)
[2023-06-16] MEDS: POTASSIUM EFFERVESENT TAB 25 MEQ PO SCH (10:07)
[2023-06-16] MEDS: ASPirin 81 mg TAB PO SCH (10:07)
[2023-06-16] MEDS: BISACODYL 5 MG EC TAB PO SCH (10:08)
[2023-06-16] MEDS: METOPROLOL TARTRATE 25 MG TAB PO SCH ×2 (10:08→22:00)
[2023-06-16] MEDS: TAMSULOSIN HYDROCHLORIDE 0.4 MG CAP PO SCH (10:08)
[2023-06-16] MEDS: FAMOTIDINE 20 MG TAB PO SCH (10:09)
[2023-06-16] MEDS: LISINOPRIL 5 MG TAB PO SCH (10:10)
[2023-06-16] MEDS ORDERED: IOHEXOL 350 MG/ML 100ML IJ ONE ×4 (14:57→16:14)
[2023-06-16] MEDS ORDERED: LIDOCAINE 2%HCL (LOCAL ANESTH.) INJ 20ML MDV ONE (14:57)
[2023-06-16] MEDS ORDERED: ANGIOMAX 250 MG VIAL IV ONE ×2 (14:58→16:17)
[2023-06-16] MEDS ORDERED: FAMOTIDINE (10MG/ML) 2ML VL IV ONE (14:59)
[2023-06-16] MEDS ORDERED: SODIUM CHL 0.9% 50 ML ONE ×2 (14:59→16:17)
[2023-06-16] MEDS ORDERED: diphenhdrAMINE HCL 50 MG/1 ML VL ONE (14:59)
[2023-06-16] MEDS ORDERED: methylPREDNISolone SOD SUCC 125 MG/2 ML VL ONE (14:59)
[2023-06-16] MEDS ORDERED: fentaNYL CITRATE 100 MCG/2 ML VL ONE (15:04)
[2023-06-16] MEDS ORDERED: MIDAZOLAM HCL 2MG/2ML 2ml VIAL (1mg/ml) ONE (15:04)
[2023-06-16] MEDS ORDERED: CLOPIDOGREL 300 MG TAB ONE (16:28)
[2023-06-16] MEDS ORDERED: ASPirin 81 mg TAB ONE (16:30)
[2023-06-16] MEDS: SODIUM CHLORIDE 0.9% 1,000 ML IV SCH (17:30)
[2023-06-16] MEDS: ATORVASTATIN 20 MG TAB PO SCH (22:35)
[2023-06-17] VITALS (7 sets, daily range): BP systolic 104–147; BP diastolic 37–69; PULSE 45–67; RESP 16–20; TEMP 97.7–98.6; O2SAT 95–100
[2023-06-17 06:02] LABS: Basophils # (auto) 0 10 ^3/uL (0-0.2); Basophils % (auto) 0.2 % (0.0-2.0); Eosinophils # (auto) 0 10 ^3/uL (0-0.8); Hematocrit 38.2 % (41.0-53.0); Hemoglobin 12.8 g/dL (13.5-17.5); Lymphocytes # (auto) 1.1 10 ^3/uL (0.4-5.4); Lymphocytes % (auto) 14.4 % (10.0-50.0); Mean Corpuscular Hemoglobin 28.8 pg (28.0-32.0); Mean Corpuscular Hgb Conc. 33.6 g/dL (32.0-36.0); Mean Corpuscular Volume 85.9 fL (80.0-100.0); Monocytes # (auto) 0.2 10 ^3/uL (0-1.3); Monocytes % (auto) 2.9 % (0.0-12.0); Neutrophils # (auto) 6.4 10 ^3/uL (1.6-8.6); Neutrophils % (auto) 82.5 % (37.0-80.0); Nucleated Red Blood Cells % 0.1 %; Red Blood Cells 4.45 10^6/uL (4.5-5.90); Red Cell Distribution Width 14.8 % (11.8-14.3); White Blood Cell 7.7 10^3/uL (4.4-10.8)
[2023-06-17 06:17] LABS: Calcium 8.6 mg/dL (8.5-10.1); Potassium 3.8 mmol/L (3.5-5.1)
[2023-06-17 06:21] LABS: BUN/Creatinine Ratio 20.4 (10.0-20.0); Bilirubin, Total 0.5 mg/dL (0.2-1.0); Total Protein 6.5 g/dL (6.4-8.2)
[2023-06-17] MEDS: InsuLIN REG 1unit/0.01ml Soln (100units/ml) SC SCH ×2 (06:34→12:22)
[2023-06-17] MEDS: ACCU-CHEK COMFORT CURVE STRIP VI SCH ×2 (06:37→12:21)
[2023-06-17] MEDS: FLUoxetine HCL 10 MG CAP PO SCH (06:39)
[2023-06-17] MEDS: SODIUM CHLORIDE 0.9% 1,000 ML IV SCH (06:50)
[2023-06-17] MEDS ORDERED: ASPI-325 PO (09:13)
[2023-06-17] MEDS ORDERED: LISI-275 PO (09:13)
[2023-06-17] MEDS ORDERED: MET25T PO (09:13)
[2023-06-17] MEDS ORDERED: CLOP75TA70 PO (09:13)
[2023-06-17] MEDS: ASPirin 81 mg TAB PO SCH (09:32)
[2023-06-17] MEDS: TAMSULOSIN HYDROCHLORIDE 0.4 MG CAP PO SCH (09:32)
[2023-06-17] MEDS: FAMOTIDINE 20 MG TAB PO SCH (09:32)
[2023-06-17] MEDS: BISACODYL 5 MG EC TAB PO SCH (09:32)
[2023-06-17] MEDS: LISINOPRIL 5 MG TAB PO SCH (09:35)
[2023-06-17] MEDS: METOPROLOL TARTRATE 25 MG TAB PO SCH (09:36)
[2023-06-17] MEDS: POTASSIUM EFFERVESENT TAB 25 MEQ PO SCH (09:55)
[2023-06-17] MEDS ORDERED: CLOPIDOGREL BISULFATE 75 MG TAB PO SCH ×2 (10:00)
[2023-06-17] MEDS ORDERED: ATOR80TA PO (10:01)
[2023-06-17] MEDS ORDERED: MORPHINE SULFATE INJ 2 MG/ml SYRG IV PRN (11:00)
== END 2023-06-17 15:09 | disposition home or self-care (01) | DRG 246 ==
LOC: ER 08:37 → EDBD 08:37 → TELE 15:26 → TELE-WESTW 23:39
PROVIDERS: ADMIT Hospitalist; ATTEND Hospitalist
PROC: 027035Z Dilation of Coronary Artery, One Artery with Two Drug-eluting Intraluminal Devices, Percutaneous Approach (ICD-10-PCS; principal; 2023-06-16)
PROC: 4A023N7 Measurement of Cardiac Sampling and Pressure, Left Heart, Percutaneous Approach (ICD-10-PCS; 2023-06-16)
PROC: B2111ZZ Fluoroscopy of Multiple Coronary Arteries using Low Osmolar Contrast (ICD-10-PCS; 2023-06-16)
PROC: B2131ZZ Fluoroscopy of Multiple Coronary Artery Bypass Grafts using Low Osmolar Contrast (ICD-10-PCS; 2023-06-16)
PROC: B2151ZZ Fluoroscopy of Left Heart using Low Osmolar Contrast (ICD-10-PCS; 2023-06-16)
PROC: B2181ZZ Fluoroscopy of Left Internal Mammary Bypass Graft using Low Osmolar Contrast (ICD-10-PCS; 2023-06-16)
PROC: B2161ZZ Fluoroscopy of Right and Left Heart using Low Osmolar Contrast (ICD-10-PCS; 2023-06-16)
DX: I21.4 Non-ST elevation (NSTEMI) myocardial infarction (principal); I50.33 Acute on chronic diastolic (congestive) heart failure; I25.10 Atherosclerotic heart disease of native coronary artery without angina pectoris; E11.65 Type 2 diabetes mellitus with hyperglycemia; E11.42 Type 2 diabetes mellitus with diabetic polyneuropathy; I11.0 Hypertensive heart disease with heart failure; E03.9 Hypothyroidism, unspecified; I45.10 Unspecified right bundle-branch block; E66.01 Morbid (severe) obesity due to excess calories; J44.9 Chronic obstructive pulmonary disease, unspecified; M10.9 Gout, unspecified; E78.5 Hyperlipidemia, unspecified; K21.9 Gastro-esophageal reflux disease without esophagitis; K29.70 Gastritis, unspecified, without bleeding; N40.0 Benign prostatic hyperplasia without lower urinary tract symptoms; Z68.36 Body mass index [BMI] 36.0-36.9, adult; Z79.82 Long term (current) use of aspirin; Z88.0 Allergy status to penicillin; Z88.1 Allergy status to other antibiotic agents; Z91.041 Radiographic dye allergy status; Z79.02 Long term (current) use of antithrombotics/antiplatelets; I25.2 Old myocardial infarction; Z95.1 Presence of aortocoronary bypass graft; Z82.49 Family history of ischemic heart disease and other diseases of the circulatory system; Z80.0 Family history of malignant neoplasm of digestive organs; Z80.8 Family history of malignant neoplasm of other organs or systems; Z87.891 Personal history of nicotine dependence
CPT/HCPCS: 36415; 71045; 74176; 80053; 80061; 81001; 82962; 83036; 83735; 83880; 84443; 84484; 85025; 85610; 85730; 86850; 86900; 86901; 92928; 92929; 93005; 93306; 93459; 96372; 99152; 99153; 99291; C1874; C1894; C9113; G0378; J1815; J2250; J3490

== ENCOUNTER 2023-07-14 10:58 | Emergency (ER) | payer OTHER, MEDICAID ==
[~2023-07-14] VITALS: Ht 167.6 cm; Wt 111.0 kg
[~2023-07-14 10:58] MED LIST changes: +ASPI-325 PO; +ATOR80TA PO; +CLOP75TA70 PO; +LISI-275 PO; +MET25T PO; -SIMV40TA18 PO
[2023-07-14 11:25] VITALS: TEMP 97
[2023-07-14 11:26] VITALS: PULSE 62
[2023-07-14 11:43] LABS: Albumin 3.9 g/dL (3.2-4.8); Alkaline Phosphatase 68 U/L (46-116); Anion Gap 6.7 (5-15); Aspartate Aminotransferase 9 U/L (13-40); BUN/Creatinine Ratio 21.7 (10.0-20.0); Blood Urea Nitrogen 25 mg/dL (9-23); Carbon Dioxide 29.3 mmol/L (20-30); Chloride 101 mmol/L (98-107); Glucose 171 mg/dL (74-106); Magnesium 1.6 mg/dL (1.6-2.6); Potassium 4.1 mmol/L (3.5-5.1); Sodium 137 mmol/L (136-145)
[2023-07-14 11:44] LABS: Bilirubin, Total 0.5 mg/dL (0.2-1.0); Total Protein 6.4 g/dL (5.7-8.2)
[2023-07-14 11:52] LABS: INR 1.09 (0.9-1.15); Partial Thromboplastin Time 31.9 SEC (24.5-34.5); Prothrombin Time 11.4 sec (9.3-11.8)
[2023-07-14 11:55] LABS: Alanine Aminotransferase 9 U/L (7-40)
[2023-07-14 12:05] LABS: Basophils # (auto) 0.1 10 ^3/uL (0-0.2); Basophils % (auto) 0.7 % (0.0-2.0); Eosinophils # (auto) 0.1 10 ^3/uL (0-0.8); Eosinophils % (auto) 1.7 % (0.0-7.0); Hematocrit 39.4 % (41.0-53.0); Hemoglobin 13.2 g/dL (13.5-17.5); Lymphocytes # (auto) 1.4 10 ^3/uL (0.4-5.4); Lymphocytes % (auto) 19.1 % (10.0-50.0); Mean Corpuscular Hemoglobin 28.8 pg (28.0-32.0); Mean Corpuscular Hgb Conc. 33.5 g/dL (32.0-36.0); Mean Corpuscular Volume 86.1 fL (80.0-100.0); Monocytes # (auto) 0.6 10 ^3/uL (0-1.3); Monocytes % (auto) 8.1 % (0.0-12.0); Neutrophils # (auto) 5.1 10 ^3/uL (1.6-8.6); Neutrophils % (auto) 70.4 % (37.0-80.0); Nucleated Red Blood Cells % 0.1 %; Red Blood Cells 4.57 10^6/uL (4.5-5.90); Red Cell Distribution Width 15.6 % (11.8-14.3); White Blood Cell 7.3 10^3/uL (4.4-10.8)
[2023-07-14 12:58] LABS: Urine Bacteria NONE SEEN /hpf (None Seen); Urine Blood Negative /uL (Negative); Urine Clarity Clear (Clear); Urine Color Colorless (Yellow); Urine Protein, UAD Negative (Negative); Urine Specific Gravity 1.013 (1.001-1.035); Urine Urobilinogen Normal (Negative); Urine WBC 1 /hpf (0 - 3); Urine pH 6.5 (5.0-8.0)
[2023-07-14 14:26] VITALS: BP 131/59; PULSE 57; RESP 10; O2SAT 95
[2023-07-14] MEDS ORDERED: HYDROcodone-ACET 10/325MG TAB PO ONE (14:30)
== END 2023-07-14 15:15 | disposition home or self-care (01) ==
LOC: EDBD 10:58 → ER 10:58
DX: I24.9 Acute ischemic heart disease, unspecified (principal); R07.89 Other chest pain; I11.0 Hypertensive heart disease with heart failure; I50.9 Heart failure, unspecified; J44.9 Chronic obstructive pulmonary disease, unspecified; E11.9 Type 2 diabetes mellitus without complications; K21.9 Gastro-esophageal reflux disease without esophagitis; I25.2 Old myocardial infarction; Z88.0 Allergy status to penicillin; Z88.8 Allergy status to other drugs, medicaments and biological substances; Z91.041 Radiographic dye allergy status
CPT/HCPCS: 36415; 71045; 80053; 81001; 83735; 83880; 84484; 85025; 85610; 85730; 93005; 99291

== ENCOUNTER 2023-10-04 16:32 | Inpatient (IN) | payer OTHER, MEDICAID ==
[~2023-10-04] VITALS: Ht 167.6 cm; Wt 110.6 kg
[~2023-10-04 16:32] MED LIST changes: -FLUO10TA18; +FLUO10TA18 PO
[2023-10-04 18:41] LABS: Basophils # (auto) 0 10 ^3/uL (0-0.2); Basophils % (auto) 0.2 % (0.0-2.0); Eosinophils # (auto) 0 10 ^3/uL (0-0.8); Eosinophils % (auto) 0.4 % (0.0-7.0); Hemoglobin 14.1 g/dL (13.5-17.5); Lymphocytes # (auto) 1.2 10 ^3/uL (0.4-5.4); Lymphocytes % (auto) 13.7 % (10.0-50.0); Mean Corpuscular Hemoglobin 29.1 pg (28.0-32.0); Mean Corpuscular Hgb Conc. 32.9 g/dL (32.0-36.0); Mean Corpuscular Volume 88.4 fL (80.0-100.0); Monocytes # (auto) 0.7 10 ^3/uL (0-1.3); Monocytes % (auto) 7.9 % (0.0-12.0); Neutrophils # (auto) 6.8 10 ^3/uL (1.6-8.6); Neutrophils % (auto) 77.8 % (37.0-80.0); Nucleated Red Blood Cells % 0.1 %; Red Blood Cells 4.87 10^6/uL (4.5-5.90); Red Cell Distribution Width 15.7 % (11.8-14.3); White Blood Cell 8.7 10^3/uL (4.4-10.8)
[2023-10-04 19:13] LABS: Albumin 4.1 g/dL (3.2-4.8); Alkaline Phosphatase 73 U/L (46-116); Anion Gap 10 (5-15); Aspartate Aminotransferase 17 U/L (13-40); BUN/Creatinine Ratio 17.1 (10.0-20.0); Bilirubin, Total 0.7 mg/dL (0.2-1.0); Blood Urea Nitrogen 14 mg/dL (9-23); Carbon Dioxide 24 mmol/L (20-30); Chloride 103 mmol/L (98-107); Glucose 161 mg/dL (74-106); Lipase 25 U/L (12-53); Potassium 3.7 mmol/L (3.5-5.1); Sodium 137 mmol/L (136-145)
[2023-10-04 19:16] LABS: Alanine Aminotransferase < 9 U/L (7-40)
[2023-10-04] MEDS ORDERED: MORPHINE SULFATE 4 MG/ML SYR/VIAL IM ONE (19:45)
[2023-10-04] MEDS ORDERED: ONDANSETRON HCL 4 MG/2 ML VIAL IM ONE (19:45)
[2023-10-04] MEDS ORDERED: PROCHLORPERAZINE EDISYLATE 5 MG/ML 2ML VIAL IM ONE (20:30)
[2023-10-04 21:30] LABS: Urine Bacteria NONE SEEN /hpf (None Seen); Urine Blood Negative /uL (Negative); Urine Clarity Clear (Clear); Urine Color Yellow (Yellow); Urine Mucus FEW (None Seen); Urine Protein, UAD 1+ (Negative); Urine Specific Gravity 1.029 (1.001-1.035); Urine WBC 2 /hpf (0 - 3); Urine pH 6.5 (5.0-8.0)
[2023-10-04] MEDS ORDERED: LACTATED RINGER'S 1,000 ML IV ONE (22:45)
[2023-10-05] MEDS ORDERED: ONDANSETRON HCL 4 MG/2 ML VIAL IV PRN (01:00)
[2023-10-05] MEDS ORDERED: DEXTROSE (50%) 50ML SYRG IV PRN (01:00)
[2023-10-05] MEDS ORDERED: ALBUTEROL MEDNEB 2.5 mg/3ml NEB NEB PRN (01:00)
[2023-10-05] MEDS ORDERED: hydrALAZINE HCL 20 MG/ML VL IV PRN (01:00)
[2023-10-05 01:40] VITALS: PULSE 106; RESP 15; O2SAT 93
[2023-10-05] MEDS: MORPHINE SULFATE INJ 2 MG/ml SYRG IV PRN ×2 (02:12→20:59)
[2023-10-05] MEDS ORDERED: MORPHINE SULFATE INJ 2 MG/ml SYRG IV PRN (04:00)
[2023-10-05] MEDS ORDERED: NITROGLYCERIN 0.4 MG SL TAB SL PRN (04:00)
[2023-10-05 04:16] VITALS: BP 132/57; PULSE 97; RESP 17; TEMP 98.1; O2SAT 96
[2023-10-05] MEDS: InsuLIN REG 1unit/0.01ml Soln (100units/ml) SC SCH ×3 (06:15→18:00)
[2023-10-05 06:16] VITALS: O2SAT 99
[2023-10-05] MEDS: ACCU-CHEK COMFORT CURVE STRIP VI SCH ×3 (06:19→18:14)
[2023-10-05 07:25] LABS: Hematocrit 41.5 % (41.0-53.0); Hemoglobin 13.7 g/dL (13.5-17.5); Mean Corpuscular Hemoglobin 28.8 pg (28.0-32.0); Mean Corpuscular Volume 87.1 fL (80.0-100.0); Red Blood Cells 4.76 10^6/uL (4.5-5.90); Red Cell Distribution Width 15.5 % (11.8-14.3); White Blood Cell 3.7 10^3/uL (4.4-10.8)
[2023-10-05 07:29] LABS: Basophils % (manual) 0 (0.0-2.0); Blast Cells 0; Eosinophils % (manual) 0 (0-7); Metamyelocytes % 0; Myelocytes % 0; Promyelocytes % 0; Reactive Lymphocytes 0
[2023-10-05 07:30] VITALS: PULSE 115; RESP 16; O2SAT 97
[2023-10-05] MEDS ORDERED: SOD CHL 0.45% 1,000 ML IV ONE (07:45)
[2023-10-05 08:02] LABS: INR 1.16 (0.9-1.15); Prothrombin Time 12.1 sec (9.3-11.8)
[2023-10-05 08:15] LABS: Chloride 103 mmol/L (98-107); Potassium 3.7 mmol/L (3.5-5.1); Sodium 140 mmol/L (136-145)
[2023-10-05 08:16] LABS: Anion Gap 10 (5-15); Carbon Dioxide 27 mmol/L (20-30)
[2023-10-05 08:22] LABS: BUN/Creatinine Ratio 25.9 (10.0-20.0); Blood Urea Nitrogen 22 mg/dL (9-23); Glucose 164 mg/dL (74-106)
[2023-10-05 08:42] LABS: Band Neutrophils % (manual) 24; Lymphocytes % (manual) 18 (10.0-50.0); Monocytes % (manual) 27 (0-12); Platelet Estimate Adequate
[2023-10-05] MEDS ORDERED: PIPERACILLIN-TAZOB 3.375GM 100 ML IV SCH (12:00)
[2023-10-05 13:18] LABS: INR 1.19 (0.9-1.15); Partial Thromboplastin Time 32.7 SEC (24.5-34.5); Prothrombin Time 12.4 sec (9.3-11.8)
[2023-10-05] MEDS: levoFLOXacin 500MG 100 ML IV SCH (17:40)
[2023-10-05 18:10] VITALS: O2SAT 94
[2023-10-05 20:00] VITALS: PULSE 93; RESP 13; O2SAT 92
[2023-10-05] MEDS: metroNIDAZOLE 500MG/100ML 100 ML IV SCH (22:26)
[2023-10-06 01:50] VITALS: BP 100/40; PULSE 85; RESP 16; TEMP 98.5; O2SAT 92
[2023-10-06] MEDS: MORPHINE SULFATE INJ 2 MG/ml SYRG IV PRN ×2 (02:09→09:28)
[2023-10-06 05:00] VITALS: BP 111/51; PULSE 101; RESP 16; TEMP 97.7; O2SAT 92
[2023-10-06] MEDS: InsuLIN REG 1unit/0.01ml Soln (100units/ml) SC SCH ×3 (06:00→12:00)
[2023-10-06] MEDS: ACCU-CHEK COMFORT CURVE STRIP VI SCH ×3 (06:09→12:00)
[2023-10-06] MEDS: metroNIDAZOLE 500MG/100ML 100 ML IV SCH ×2 (06:09→14:00)
[2023-10-06 06:20] LABS: Chloride 104 mmol/L (98-107); Potassium 3.3 mmol/L (3.5-5.1); Sodium 140 mmol/L (136-145)
[2023-10-06 06:21] LABS: Anion Gap 9 (5-15); Carbon Dioxide 27 mmol/L (20-30)
[2023-10-06 06:22] LABS: Calcium 8.8 mg/dL (8.5-10.1)
[2023-10-06 06:26] LABS: BUN/Creatinine Ratio 27.9 (10.0-20.0); Blood Urea Nitrogen 24 mg/dL (9-23); Glucose 111 mg/dL (74-106)
[2023-10-06 06:27] LABS: Basophils # (auto) 0 10 ^3/uL (0-0.2); Basophils % (auto) 0.5 % (0.0-2.0); Eosinophils # (auto) 0.1 10 ^3/uL (0-0.8); Eosinophils % (auto) 1.6 % (0.0-7.0); Hematocrit 37.5 % (41.0-53.0); Hemoglobin 12.4 g/dL (13.5-17.5); Lymphocytes # (auto) 1.4 10 ^3/uL (0.4-5.4); Mean Corpuscular Hgb Conc. 33.1 g/dL (32.0-36.0); Mean Corpuscular Volume 87.6 fL (80.0-100.0); Monocytes % (auto) 17.5 % (0.0-12.0); Neutrophils % (auto) 54.4 % (37.0-80.0); Nucleated Red Blood Cells % 0.2 %; Red Blood Cells 4.28 10^6/uL (4.5-5.90); Red Cell Distribution Width 15.2 % (11.8-14.3); White Blood Cell 5.5 10^3/uL (4.4-10.8)
[2023-10-06 09:00] VITALS: BP 129/50; PULSE 68; RESP 18; TEMP 97.8; O2SAT 92
[2023-10-06] MEDS: levoFLOXacin 500MG 100 ML IV SCH (09:28)
[2023-10-06] MEDS ORDERED: POTASSIUM CHL 20MEQ/100ML 100 ML IV ONE (10:45)
[2023-10-06] MEDS ORDERED: POTASSIUM CHL 20MEQ/50ML 50 ML IV ONE (11:45)
[2023-10-06 12:58] VITALS: BP 138/51; PULSE 94; RESP 18; TEMP 98.4; O2SAT 93
[2023-10-06] MEDS ORDERED: SIMV20TA20 PO (13:22)
[2023-10-06] MEDS ORDERED: SIMV10TA20 PO (13:24)
[2023-10-06] MEDS ORDERED: CARV3.1240 PO (13:24)
[2023-10-06] MEDS ORDERED: FINA5TAB4 PO (13:24)
[2023-10-06 17:00] VITALS: BP 118/43; PULSE 86; RESP 18; TEMP 98.4; O2SAT 95
== END 2023-10-06 18:25 | disposition left against medical advice (07) | DRG 394 ==
LOC: ER 16:32 → TELE 10-05 03:55 → TELE-WESTW 10-05 23:15
PROVIDERS: ADMIT Hospitalist; ATTEND Hospitalist
PROC: 0D9670Z Drainage of Stomach with Drainage Device, Via Natural or Artificial Opening (ICD-10-PCS; principal; 2023-10-04)
DX: K43.6 Other and unspecified ventral hernia with obstruction, without gangrene (principal); I50.22 Chronic systolic (congestive) heart failure; E11.9 Type 2 diabetes mellitus without complications; I11.0 Hypertensive heart disease with heart failure; I25.10 Atherosclerotic heart disease of native coronary artery without angina pectoris; J44.89 Other specified chronic obstructive pulmonary disease; I25.5 Ischemic cardiomyopathy; Z53.29 Procedure and treatment not carried out because of patient's decision for other reasons; E78.5 Hyperlipidemia, unspecified; K21.9 Gastro-esophageal reflux disease without esophagitis; N40.0 Benign prostatic hyperplasia without lower urinary tract symptoms; Z80.0 Family history of malignant neoplasm of digestive organs; Z82.49 Family history of ischemic heart disease and other diseases of the circulatory system; Z83.3 Family history of diabetes mellitus; Z95.1 Presence of aortocoronary bypass graft; Z85.038 Personal history of other malignant neoplasm of large intestine; Z95.5 Presence of coronary angioplasty implant and graft; Z88.0 Allergy status to penicillin; Z88.8 Allergy status to other drugs, medicaments and biological substances; Z91.041 Radiographic dye allergy status
CPT/HCPCS: 36415; 74018; 74176; 80048; 80053; 81001; 82962; 83605; 83690; 85007; 85025; 85027; 85610; 85730; 87493; 93005; 96372; G0378; J1815; J1956; J2405; J3480; J3490

== ENCOUNTER 2024-01-18 19:48 | Inpatient (IN) | payer OTHER, MEDICAID ==
[~2024-01-18] VITALS: Ht 167.6 cm; Wt 108.6 kg
[~2024-01-18 19:48] MED LIST changes: -ATOR80TA PO; +CARV3.1240 PO; +FINA5TAB4 PO; +SIMV10TA20 PO
[2024-01-18 20:36] LABS: Basophils # (auto) 0 10 ^3/uL (0-0.2); Basophils % (auto) 0.3 % (0.0-2.0); Eosinophils # (auto) 0.1 10 ^3/uL (0-0.8); Eosinophils % (auto) 0.9 % (0.0-7.0); Hematocrit 43.2 % (41.0-53.0); Hemoglobin 14.3 g/dL (13.5-17.5); Lymphocytes # (auto) 0.7 10 ^3/uL (0.4-5.4); Lymphocytes % (auto) 5.3 % (10.0-50.0); Mean Corpuscular Hemoglobin 28.8 pg (28.0-32.0); Mean Corpuscular Volume 87.1 fL (80.0-100.0); Monocytes # (auto) 0.8 10 ^3/uL (0-1.3); Monocytes % (auto) 6.7 % (0.0-12.0); Neutrophils # (auto) 10.6 10 ^3/uL (1.6-8.6); Neutrophils % (auto) 86.8 % (37.0-80.0); Nucleated Red Blood Cells % 0.1 %; Red Blood Cells 4.96 10^6/uL (4.5-5.90); Red Cell Distribution Width 14.7 % (11.8-14.3); White Blood Cell 12.2 10^3/uL (4.4-10.8)
[2024-01-18 20:54] LABS: Alanine Aminotransferase 12 U/L (7-40); Albumin 3.8 g/dL (3.2-4.8); Alkaline Phosphatase 72 U/L (46-116); Anion Gap 8 (5-15); Aspartate Aminotransferase 14 U/L (13-40); BUN/Creatinine Ratio 24.2 (10.0-20.0); Bilirubin, Total 0.5 mg/dL (0.2-1.0); Blood Urea Nitrogen 22 mg/dL (9-23); Calcium 9.5 mg/dL (8.7-10.4); Carbon Dioxide 26 mmol/L (20-30); Chloride 104 mmol/L (98-107); Glucose 163 mg/dL (74-106); Lipase 25 U/L (12-53); Potassium 3.9 mmol/L (3.5-5.1); Sodium 138 mmol/L (136-145)
[2024-01-18 20:55] LABS: Total Protein 6.5 g/dL (5.7-8.2)
[2024-01-18 20:58] LABS: INR 1.05 (0.9-1.15); Partial Thromboplastin Time 33.4 SEC (24.5-34.5)
[2024-01-18] MEDS: ONDANSETRON HCL 4 MG/2 ML VIAL IV ONE (21:58)
[2024-01-18] MEDS: MORPHINE SULFATE 4 MG/ML SYR/VIAL IV PRN (21:59)
[2024-01-18] MEDS: metroNIDAZOLE 500MG/100ML 100 ML IV ONE (22:51)
[2024-01-18 23:46] VITALS: PULSE 87; RESP 13; O2SAT 97
[2024-01-18 23:46] LABS: Urine Bacteria NONE SEEN /hpf (None Seen); Urine Blood Negative /uL (Negative); Urine Clarity Clear (Clear); Urine Color Yellow (Yellow); Urine Protein, UAD TRACE (Negative); Urine Specific Gravity 1.028 (1.001-1.035); Urine WBC 1 /hpf (0 - 3); Urine pH 7.5 (5.0-8.0)
[2024-01-19] MEDS ORDERED: NITROGLYCERIN 0.4 MG SL TAB SL PRN
[2024-01-19] MEDS: CIPROFLOXACIN 400MG/200ML 200 ML IV ONE (01:06)
[2024-01-19] MEDS: SOD CHL 0.45% 1,000 ML IV ONE (01:50)
[2024-01-19] MEDS: ONDANSETRON HCL 4 MG/2 ML VIAL IV PRN (01:56)
[2024-01-19 06:25] LABS: Basophils # (auto) 0 10 ^3/uL (0-0.2); Basophils % (auto) 0.4 % (0.0-2.0); Eosinophils # (auto) 0.1 10 ^3/uL (0-0.8); Eosinophils % (auto) 1.2 % (0.0-7.0); Hematocrit 39.7 % (41.0-53.0); Hemoglobin 13.4 g/dL (13.5-17.5); Lymphocytes # (auto) 1.9 10 ^3/uL (0.4-5.4); Lymphocytes % (auto) 23.8 % (10.0-50.0); Mean Corpuscular Hemoglobin 29.3 pg (28.0-32.0); Mean Corpuscular Hgb Conc. 33.8 g/dL (32.0-36.0); Mean Corpuscular Volume 86.8 fL (80.0-100.0); Monocytes # (auto) 0.8 10 ^3/uL (0-1.3); Monocytes % (auto) 10.3 % (0.0-12.0); Neutrophils # (auto) 5.1 10 ^3/uL (1.6-8.6); Neutrophils % (auto) 64.3 % (37.0-80.0); Nucleated Red Blood Cells % 0.1 %; Red Blood Cells 4.57 10^6/uL (4.5-5.90); Red Cell Distribution Width 15.1 % (11.8-14.3)
[2024-01-19 06:49] LABS: Alanine Aminotransferase 10 U/L (7-40); Albumin 3.7 g/dL (3.2-4.8); Alkaline Phosphatase 66 U/L (46-116); Anion Gap 8 (5-15); Aspartate Aminotransferase 12 U/L (13-40); Bilirubin, Total 0.7 mg/dL (0.2-1.0); Blood Urea Nitrogen 20 mg/dL (9-23); Calcium 9.1 mg/dL (8.7-10.4); Carbon Dioxide 26 mmol/L (20-30); Chloride 104 mmol/L (98-107); Glucose 127 mg/dL (74-106); Potassium 3.9 mmol/L (3.5-5.1); Sodium 138 mmol/L (136-145); Total Protein 6.1 g/dL (5.7-8.2)
[2024-01-19] MEDS: MORPHINE SULFATE INJ 2 MG/ml SYRG IV PRN (07:54)
[2024-01-19] MEDS: metroNIDAZOLE 500MG/100ML 100 ML IV SCH (09:58)
[2024-01-19 11:13] VITALS: PULSE 82; RESP 14; O2SAT 96
[2024-01-19] MEDS: LIDOCAINE 2% TOPICAL JELLY 5 ML URJT TOP ONE (11:30)
[2024-01-19] MEDS: CIPROFLOXACIN 400MG/200ML 200 ML IV SCH (12:50)
[2024-01-19 13:00] VITALS: BP 119/39; PULSE 74; RESP 14; TEMP 98.2; O2SAT 98
[2024-01-19 14:32] LABS: Hepatitis B Surface Antigen Negative (Negative)
[2024-01-19 14:53] LABS: Hepatitis C Antibody Negative (Negative)
[2024-01-19 17:00] VITALS: BP 149/60; PULSE 87; RESP 16; TEMP 97.7; O2SAT 95
[2024-01-19 19:50] VITALS: PULSE 82; RESP 18; O2SAT 93
[2024-01-19 22:00] VITALS: BP 145/52; PULSE 82; RESP 18; TEMP 98.3; O2SAT 95
[2024-01-20] VITALS (7 sets, daily range): BP systolic 115–158; BP diastolic 54–73; PULSE 60–80; RESP 12–18; TEMP 97.3–98.2; O2SAT 94–98
[2024-01-20 08:44] LABS: Basophils # (auto) 0.1 10 ^3/uL (0-0.2); Basophils % (auto) 1.1 % (0.0-2.0); Eosinophils # (auto) 0.2 10 ^3/uL (0-0.8); Eosinophils % (auto) 2.4 % (0.0-7.0); Hematocrit 40.4 % (41.0-53.0); Hemoglobin 13.4 g/dL (13.5-17.5); Lymphocytes # (auto) 1.8 10 ^3/uL (0.4-5.4); Lymphocytes % (auto) 23.5 % (10.0-50.0); Mean Corpuscular Hemoglobin 28.7 pg (28.0-32.0); Mean Corpuscular Hgb Conc. 33.3 g/dL (32.0-36.0); Mean Corpuscular Volume 86.3 fL (80.0-100.0); Monocytes # (auto) 0.8 10 ^3/uL (0-1.3); Monocytes % (auto) 10.6 % (0.0-12.0); Neutrophils # (auto) 4.7 10 ^3/uL (1.6-8.6); Neutrophils % (auto) 62.4 % (37.0-80.0); Nucleated Red Blood Cells % 0.1 %; Red Blood Cells 4.68 10^6/uL (4.5-5.90); Red Cell Distribution Width 14.8 % (11.8-14.3); White Blood Cell 7.6 10^3/uL (4.4-10.8)
[2024-01-20 09:02] LABS: Albumin 3.7 g/dL (3.2-4.8); Alkaline Phosphatase 63 U/L (46-116); Anion Gap 6 (5-15); Aspartate Aminotransferase 16 U/L (13-40); BUN/Creatinine Ratio 15.3 (10.0-20.0); Bilirubin, Total 0.7 mg/dL (0.2-1.0); Blood Urea Nitrogen 13 mg/dL (9-23); Calcium 8.9 mg/dL (8.5-10.1); Carbon Dioxide 30 mmol/L (20-30); Chloride 103 mmol/L (98-107); Glucose 122 mg/dL (74-106); Potassium 3.4 mmol/L (3.5-5.1); Sodium 139 mmol/L (136-145); Total Protein 6.2 g/dL (5.7-8.2)
[2024-01-20 09:06] LABS: Alanine Aminotransferase < 9 U/L (7-40)
[2024-01-20] MEDS: PANTOPRAZOLE 40 MG/10 ML VIAL INJ IV SCH (09:41)
[2024-01-20] MEDS ORDERED: GABA-339 PO (11:17)
[2024-01-20] MEDS ORDERED: MIRA50TA PO (11:17)
[2024-01-20] MEDS ORDERED: SITA100T7 PO (11:17)
[2024-01-20] MEDS: diphenhdrAMINE HCL 50 MG/1 ML VL IV ONE (11:23)
[2024-01-20] MEDS: GASTROGRAFIN 120 ML SOL ONE (14:04)
[2024-01-20] MEDS: EZ PAQUE SUSP 12OZ BTL ONE (14:04)
[2024-01-20] MEDS: ASPirin 300 MG RECTAL SUPP PR SCH (14:27)
[2024-01-20] MEDS: POTASSIUM CHL 20MEQ/100ML 100 ML IV ONE (15:27)
[2024-01-20] MEDS: MORPHINE SULFATE INJ 2 MG/ml SYRG IV PRN (22:33)
[2024-01-21 05:00] VITALS: BP 155/52; PULSE 73; RESP 18; TEMP 98.1; O2SAT 90
[2024-01-21 08:00] VITALS: PULSE 78; RESP 19; O2SAT 94
[2024-01-21 08:35] LABS: Basophils # (auto) 0 10 ^3/uL (0-0.2); Basophils % (auto) 0.5 % (0.0-2.0); Eosinophils # (auto) 0.3 10 ^3/uL (0-0.8); Eosinophils % (auto) 3.8 % (0.0-7.0); Hematocrit 39.1 % (41.0-53.0); Hemoglobin 13.1 g/dL (13.5-17.5); Lymphocytes # (auto) 2.1 10 ^3/uL (0.4-5.4); Lymphocytes % (auto) 26.5 % (10.0-50.0); Mean Corpuscular Hemoglobin 28.9 pg (28.0-32.0); Mean Corpuscular Hgb Conc. 33.4 g/dL (32.0-36.0); Mean Corpuscular Volume 86.5 fL (80.0-100.0); Monocytes # (auto) 0.9 10 ^3/uL (0-1.3); Monocytes % (auto) 11.4 % (0.0-12.0); Neutrophils # (auto) 4.5 10 ^3/uL (1.6-8.6); Neutrophils % (auto) 57.8 % (37.0-80.0); Nucleated Red Blood Cells % 0.1 %; Red Blood Cells 4.52 10^6/uL (4.5-5.90); White Blood Cell 7.8 10^3/uL (4.4-10.8)
[2024-01-21 08:51] LABS: Albumin 3.5 g/dL (3.2-4.8); Alkaline Phosphatase 59 U/L (46-116); Anion Gap 8 (5-15); Aspartate Aminotransferase 18 U/L (13-40); Blood Urea Nitrogen 13 mg/dL (9-23); Calcium 8.8 mg/dL (8.5-10.1); Carbon Dioxide 27 mmol/L (20-30); Chloride 104 mmol/L (98-107); Glucose 97 mg/dL (74-106); Potassium 3.3 mmol/L (3.5-5.1); Sodium 139 mmol/L (136-145)
[2024-01-21 08:52] LABS: Bilirubin, Total 0.6 mg/dL (0.2-1.0); Total Protein 5.8 g/dL (5.7-8.2)
[2024-01-21 08:53] LABS: Alanine Aminotransferase < 9 U/L (7-40)
[2024-01-21 09:00] VITALS: BP_SYST 102; BP_SYST 142; BP_DIAS 49; BP_DIAS 85; PULSE 78; PULSE 89; RESP 19; RESP 20; TEMP 98.4; O2SAT 94; O2SAT 97
[2024-01-21] MEDS: ASPirin-EC 81 mg tab PO SCH (10:43)
[2024-01-21] MEDS: CLOPIDOGREL BISULFATE 75 MG TAB PO SCH (10:43)
[2024-01-21 13:00] VITALS: BP 137/58; PULSE 64; RESP 18; TEMP 98.1; O2SAT 97
[2024-01-21] MEDS: POTASSIUM EFFERVESENT TAB 25 MEQ PO ONE (16:42)
[2024-01-21 17:00] VITALS: BP 127/63; PULSE 71; RESP 18; TEMP 98.1; O2SAT 97
[2024-01-21 17:27] VITALS: BP 127/63; PULSE 71; RESP 18; TEMP 98.7; O2SAT 97
[2024-01-21] MEDS ORDERED: ATORVASTATIN 20 MG TAB PO SCH (22:00)
== END 2024-01-21 19:00 | disposition home or self-care (01) | DRG 394 ==
LOC: EDBD 19:48 → ER 19:48 → OVERFLOW 23:58 → CENTRAL 01-19 08:22
PROVIDERS: ADMIT Internal Medicine; ATTEND Student in an Organized Health Care Education/Training Program
DX: K43.6 Other and unspecified ventral hernia with obstruction, without gangrene (principal); I50.20 Unspecified systolic (congestive) heart failure; E66.01 Morbid (severe) obesity due to excess calories; I11.0 Hypertensive heart disease with heart failure; E78.5 Hyperlipidemia, unspecified; E11.9 Type 2 diabetes mellitus without complications; J44.9 Chronic obstructive pulmonary disease, unspecified; I27.20 Pulmonary hypertension, unspecified; I45.10 Unspecified right bundle-branch block; K21.9 Gastro-esophageal reflux disease without esophagitis; I25.10 Atherosclerotic heart disease of native coronary artery without angina pectoris; Z68.38 Body mass index [BMI] 38.0-38.9, adult; Z88.0 Allergy status to penicillin; Z88.8 Allergy status to other drugs, medicaments and biological substances; Z91.041 Radiographic dye allergy status; I25.2 Old myocardial infarction; Z79.84 Long term (current) use of oral hypoglycemic drugs; Z95.1 Presence of aortocoronary bypass graft; Z87.11 Personal history of peptic ulcer disease; Z85.038 Personal history of other malignant neoplasm of large intestine; Z83.3 Family history of diabetes mellitus; Z82.49 Family history of ischemic heart disease and other diseases of the circulatory system; Z80.0 Family history of malignant neoplasm of digestive organs
CPT/HCPCS: 36415; 71045; 74176; 74250; 80053; 81001; 83605; 83690; 84484; 85025; 85610; 85730; 86803; 87040; 87340; 93005; 93306; C9113; G0378; J2405; J3480; J3490

== ENCOUNTER 2024-05-06 05:30 | Emergency (ER) | payer OTHER, MEDICAID ==
[~2024-05-06] VITALS: Ht 167.6 cm; Wt 127.0 kg
[2024-05-06 05:58] VITALS: PULSE 68; RESP 12; O2SAT 94
[2024-05-06 06:27] LABS: Basophils # (auto) 0 10 ^3/uL (0-0.2); Basophils % (auto) 0.2 % (0.0-2.0); Eosinophils # (auto) 0.1 10 ^3/uL (0-0.8); Eosinophils % (auto) 0.9 % (0.0-7.0); Hematocrit 40.7 % (41.0-53.0); Hemoglobin 13.8 g/dL (13.5-17.5); Lymphocytes # (auto) 0.9 10 ^3/uL (0.4-5.4); Lymphocytes % (auto) 8.5 % (10.0-50.0); Mean Corpuscular Hemoglobin 29.8 pg (28.0-32.0); Mean Corpuscular Hgb Conc. 33.8 g/dL (32.0-36.0); Mean Corpuscular Volume 88.1 fL (80.0-100.0); Monocytes # (auto) 1.1 10 ^3/uL (0-1.3); Monocytes % (auto) 10.7 % (0.0-12.0); Neutrophils # (auto) 8.5 10 ^3/uL (1.6-8.6); Neutrophils % (auto) 79.7 % (37.0-80.0); Red Blood Cells 4.62 10^6/uL (4.5-5.90); Red Cell Distribution Width 15.6 % (11.8-14.3); White Blood Cell 10.6 10^3/uL (4.4-10.8)
[2024-05-06 06:41] LABS: Alanine Aminotransferase 10 U/L (7-40); Albumin 3.9 g/dL (3.2-4.8); Alkaline Phosphatase 69 U/L (46-116); Anion Gap 9 (5-15); Aspartate Aminotransferase 13 U/L (13-40); BUN/Creatinine Ratio 26.1 (10.0-20.0); Bilirubin, Total 0.5 mg/dL (0.2-1.0); Blood Urea Nitrogen 23 mg/dL (9-23); Calcium 9.2 mg/dL (8.5-10.1); Carbon Dioxide 24 mmol/L (20-30); Chloride 106 mmol/L (98-107); Glucose 135 mg/dL (74-106); Potassium 3.8 mmol/L (3.5-5.1); Sodium 139 mmol/L (136-145); Total Protein 6.2 g/dL (5.7-8.2)
[2024-05-06 06:53] LABS: Lipase 31 U/L (12-53)
[2024-05-06 07:15] VITALS: PULSE 75; RESP 13; TEMP 98.7; O2SAT 99
[2024-05-06 09:20] LABS: Urine Bacteria None Seen /hpf (None Seen)
[2024-05-06 09:42] LABS: Urine Blood Negative /uL (Negative); Urine Clarity Clear (Clear); Urine Color Light-Yellow (Yellow); Urine Protein, UAD Negative (Negative); Urine Specific Gravity 1.018 (1.001-1.035); Urine Urobilinogen Normal (Negative); Urine WBC <1 /hpf (0 - 3)
[2024-05-06 15:15] VITALS: BP 148/110; PULSE 75; RESP 13; O2SAT 97
== END 2024-05-06 15:40 | disposition admitted as inpatient to this hospital (09) ==
LOC: EDBD 05:30 → EDUNIT# 05:30 → ER 05:32
DX: K42.9 Umbilical hernia without obstruction or gangrene (principal); I11.0 Hypertensive heart disease with heart failure; I50.9 Heart failure, unspecified; J44.9 Chronic obstructive pulmonary disease, unspecified; E11.9 Type 2 diabetes mellitus without complications; K21.9 Gastro-esophageal reflux disease without esophagitis; I25.2 Old myocardial infarction; Z85.9 Personal history of malignant neoplasm, unspecified; Z98.890 Other specified postprocedural states; Z88.8 Allergy status to other drugs, medicaments and biological substances; Z91.041 Radiographic dye allergy status; Z79.899 Other long term (current) drug therapy
CPT/HCPCS: 36415; 74176; 80053; 81001; 83690; 84484; 85025; 93005

== ENCOUNTER 2024-05-07 13:47 | Inpatient (IN) | payer OTHER, MEDICAID ==
[~2024-05-07] VITALS: Ht 167.6 cm; Wt 118.0 kg
[2024-05-07 14:25] LABS: Basophils # (auto) 0 10 ^3/uL (0-0.2); Basophils % (auto) 0.1 % (0.0-2.0); Eosinophils # (auto) 0 10 ^3/uL (0-0.8); Eosinophils % (auto) 0.2 % (0.0-7.0); Hematocrit 42.8 % (41.0-53.0); Hemoglobin 14.6 g/dL (13.5-17.5); Lymphocytes % (auto) 19.6 % (10.0-50.0); Mean Corpuscular Hemoglobin 29.4 pg (28.0-32.0); Mean Corpuscular Hgb Conc. 34.2 g/dL (32.0-36.0); Mean Corpuscular Volume 86.1 fL (80.0-100.0); Monocytes # (auto) 0.8 10 ^3/uL (0-1.3); Neutrophils # (auto) 3.4 10 ^3/uL (1.6-8.6); Neutrophils % (auto) 65.1 % (37.0-80.0); Nucleated Red Blood Cells % 0.1 %; Red Blood Cells 4.97 10^6/uL (4.5-5.90); Red Cell Distribution Width 15.5 % (11.8-14.3); White Blood Cell 5.2 10^3/uL (4.4-10.8)
[2024-05-07 14:51] LABS: INR 1.21 (0.9-1.15); Prothrombin Time 12.6 sec (9.3-11.8)
[2024-05-07 14:55] LABS: Albumin 3.9 g/dL (3.2-4.8); Alkaline Phosphatase 59 U/L (46-116); Anion Gap 8 (5-15); Aspartate Aminotransferase 8 U/L (13-40); BUN/Creatinine Ratio 28.8 (10.0-20.0); Bilirubin, Total 0.9 mg/dL (0.2-1.0); Blood Urea Nitrogen 30 mg/dL (9-23); Calcium 9.6 mg/dL (8.7-10.4); Carbon Dioxide 26 mmol/L (20-30); Chloride 103 mmol/L (98-107); Glucose 191 mg/dL (74-106); Lipase 17 U/L (12-53); Sodium 137 mmol/L (136-145); Total Protein 6.5 g/dL (5.7-8.2)
[2024-05-07 14:59] LABS: Alanine Aminotransferase < 9 U/L (7-40)
[2024-05-07] MEDS ORDERED: ONDANSETRON HCL 4 MG/2 ML VIAL IV PRN ×2 (16:30→17:45)
[2024-05-07] MEDS ORDERED: NITROGLYCERIN 0.4 MG SL TAB SL PRN (17:45)
[2024-05-07 18:06] VITALS: PULSE 84; RESP 19; O2SAT 96
[2024-05-07 19:02] VITALS: BP 133/60; PULSE 82; RESP 16; RESP 18; TEMP 97.6; O2SAT 96; O2SAT 98
[2024-05-07 20:00] VITALS: PULSE 73
[2024-05-07] MEDS: MORPHINE SULFATE INJ 2 MG/ml SYRG IV PRN (20:49)
[2024-05-07 21:00] VITALS: BP 146/60; PULSE 78; RESP 18; TEMP 98; O2SAT 95
[2024-05-07] MEDS: ENOXAPARIN SOD 30 MG/0.3 ML SYRINGE SC SCH (22:20)
[2024-05-07] MEDS: SODIUM CHLORIDE 0.9% 1,000 ML IV ONE (22:37)
[2024-05-08] VITALS (7 sets, daily range): BP systolic 99–155; BP diastolic 37–60; PULSE 52–82; RESP 17–20; TEMP 98–98.7; O2SAT 90–98
[2024-05-08 06:06] LABS: Basophils # (auto) 0 10 ^3/uL (0-0.2); Basophils % (auto) 0.2 % (0.0-2.0); Eosinophils # (auto) 0 10 ^3/uL (0-0.8); Eosinophils % (auto) 0.4 % (0.0-7.0); Hematocrit 37.8 % (41.0-53.0); Hemoglobin 12.9 g/dL (13.5-17.5); Lymphocytes # (auto) 1.4 10 ^3/uL (0.4-5.4); Lymphocytes % (auto) 25.4 % (10.0-50.0); Mean Corpuscular Hemoglobin 29.6 pg (28.0-32.0); Monocytes % (auto) 17.6 % (0.0-12.0); Neutrophils # (auto) 3.1 10 ^3/uL (1.6-8.6); Neutrophils % (auto) 56.4 % (37.0-80.0); Nucleated Red Blood Cells % 0.1 %; Red Blood Cells 4.35 10^6/uL (4.5-5.90); Red Cell Distribution Width 15.8 % (11.8-14.3); White Blood Cell 5.6 10^3/uL (4.4-10.8)
[2024-05-08 06:19] LABS: Alanine Aminotransferase 10 U/L (7-40); Albumin 3.7 g/dL (3.2-4.8); Alkaline Phosphatase 51 U/L (46-116); Anion Gap 6 (5-15); Aspartate Aminotransferase 12 U/L (13-40); BUN/Creatinine Ratio 32.6 (10.0-20.0); Blood Urea Nitrogen 30 mg/dL (9-23); Carbon Dioxide 28 mmol/L (20-30); Chloride 104 mmol/L (98-107); Glucose 132 mg/dL (74-106); Potassium 3.6 mmol/L (3.5-5.1); Sodium 138 mmol/L (136-145)
[2024-05-08 06:20] LABS: Bilirubin, Total 0.6 mg/dL (0.2-1.0); Total Protein 6.2 g/dL (5.7-8.2)
[2024-05-08] MEDS ORDERED: diphenhdrAMINE HCL 50 MG/1 ML VL IV PRN (10:00)
[2024-05-09] VITALS (10 sets, daily range): BP systolic 137–165; BP diastolic 52–68; PULSE 51–69; RESP 15–18; TEMP 97.6–98.4; O2SAT 92–98
[2024-05-09] MEDS: SODIUM CHLORIDE 0.9% 1,000 ML IV SCH (10:45)
[2024-05-09 11:14] LABS: Hemoglobin 13.2 g/dL (13.5-17.5); Mean Corpuscular Hemoglobin 29.1 pg (28.0-32.0); Mean Corpuscular Hgb Conc. 33.8 g/dL (32.0-36.0); Mean Corpuscular Volume 86.2 fL (80.0-100.0); Red Blood Cells 4.53 10^6/uL (4.5-5.90); Red Cell Distribution Width 14.9 % (11.8-14.3); White Blood Cell 6.5 10^3/uL (4.4-10.8)
[2024-05-09 11:18] LABS: Albumin 3.7 g/dL (3.2-4.8); Alkaline Phosphatase 51 U/L (46-116); Anion Gap 9 (5-15); BUN/Creatinine Ratio 37.3 (10.0-20.0); Bilirubin, Total 0.5 mg/dL (0.2-1.0); Blood Urea Nitrogen 28 mg/dL (9-23); Calcium 9.2 mg/dL (8.5-10.1); Carbon Dioxide 25 mmol/L (20-30); Chloride 105 mmol/L (98-107); Glucose 81 mg/dL (74-106); Potassium 3.5 mmol/L (3.5-5.1); Sodium 139 mmol/L (136-145); Total Protein 6.3 g/dL (5.7-8.2)
[2024-05-09 11:19] LABS: Basophils % (manual) 0 (0.0-2.0); Blast Cells 0; Metamyelocytes % 0; Myelocytes % 0; Promyelocytes % 0; Reactive Lymphocytes 0
[2024-05-09 11:23] LABS: Aspartate Aminotransferase 11 U/L (13-40)
[2024-05-09 11:25] LABS: Alanine Aminotransferase < 9 U/L (7-40)
[2024-05-09 11:31] LABS: Anisocytosis Slight; Band Neutrophils % (manual) 4; Eosinophils % (manual) 2 (0-7); Lymphocytes % (manual) 28 (10.0-50.0); Monocytes % (manual) 14 (0-12); Platelet Estimate Adequate
[2024-05-10] VITALS (8 sets, daily range): BP systolic 141–166; BP diastolic 55–62; PULSE 60–88; RESP 13–19; TEMP 97.3–98.6; O2SAT 93–99
[2024-05-10 05:54] LABS: Hematocrit 39.6 % (41.0-53.0); Hemoglobin 13.6 g/dL (13.5-17.5); Mean Corpuscular Hemoglobin 29.5 pg (28.0-32.0); Mean Corpuscular Hgb Conc. 34.3 g/dL (32.0-36.0); Red Blood Cells 4.61 10^6/uL (4.5-5.90); Red Cell Distribution Width 15.2 % (11.8-14.3); White Blood Cell 7.4 10^3/uL (4.4-10.8)
[2024-05-10 06:10] LABS: Alkaline Phosphatase 54 U/L (46-116); Anion Gap 9 (5-15); Aspartate Aminotransferase 10 U/L (13-40); BUN/Creatinine Ratio 26.5 (10.0-20.0); Bilirubin, Total 0.7 mg/dL (0.2-1.0); Blood Urea Nitrogen 18 mg/dL (9-23); Calcium 8.9 mg/dL (8.5-10.1); Carbon Dioxide 24 mmol/L (20-30); Chloride 104 mmol/L (98-107); Glucose 102 mg/dL (74-106); Potassium 3.3 mmol/L (3.5-5.1); Sodium 137 mmol/L (136-145); Total Protein 6.3 g/dL (5.7-8.2)
[2024-05-10 06:12] LABS: Albumin 3.8 g/dL (3.2-4.8)
[2024-05-10 06:29] LABS: Basophils % (manual) 0 (0.0-2.0); Blast Cells 0; Eosinophils % (manual) 0 (0-7); Metamyelocytes % 0; Promyelocytes % 0
[2024-05-10 06:30] LABS: Alanine Aminotransferase < 9 U/L (7-40)
[2024-05-10 06:44] LABS: Anisocytosis Slight; Band Neutrophils % (manual) 4; Lymphocytes % (manual) 20 (10.0-50.0); Monocytes % (manual) 13 (0-12); Myelocytes % 1; Platelet Estimate Adequate; Reactive Lymphocytes 1
[2024-05-10] MEDS ORDERED: KETAMINE 50mg/ML 1ml syringe ONE (13:05)
[2024-05-10] MEDS ORDERED: MIDAZOLAM HCL 2MG/2ML 2ml VIAL (1mg/ml) ONE (13:05)
[2024-05-10] MEDS ORDERED: fentaNYL CITRATE 100 MCG/2 ML VL ONE (13:05)
[2024-05-10] MEDS ORDERED: HYDROmorphone HCL 2 MG/ML VL/or syr ONE (13:05)
[2024-05-10] MEDS ORDERED: PHENYLEPHRINE HCL 10 MG/ML VL ONE (13:06)
[2024-05-10] MEDS ORDERED: DexAMETHasone SOD PHOS 10MG/1ML VIAL INJ ONE (13:06)
[2024-05-10] MEDS ORDERED: GLYCOPYRROLATE 0.2 MG/ML 1ML VIAL ONE (13:06)
[2024-05-10] MEDS ORDERED: ETOMIDATE (2MG/ML) 20ML VIAL IV ONE (13:06)
[2024-05-10] MEDS ORDERED: ONDANSETRON HCL 4 MG/2 ML VIAL ONE (13:06)
[2024-05-10] MEDS ORDERED: levoFLOXacin 500MG 100 ML IV ONE (13:18)
[2024-05-10] MEDS ORDERED: SUGAMMADEX 200mg/2ml Vial (100MG/ML) IV ONE ×4 (14:10→14:29)
[2024-05-10] MEDS ORDERED: MEPERIDINE HCL (25 MG/ML) 1ML VIAL ONE (14:42)
[2024-05-10] MEDS ORDERED: ONDANSETRON HCL 4 MG/2 ML VIAL IV ONE (15:15)
[2024-05-10] MEDS ORDERED: ACCU-CHEK COMFORT CURVE STRIP VI ONE (15:15)
[2024-05-10] MEDS: HYDROmorphone HCL 2 MG/ML VL/or syr IV PRN (15:27)
[2024-05-10] MEDS: POTASSIUM CHLORIDE 40 MEQ, LIDOCAINE 1% (LOCAL ANESTH.) 4 ML in SODIUM CHL 0.9% 250 ML IV ONE (17:43)
[2024-05-11] VITALS (7 sets, daily range): BP systolic 100–158; BP diastolic 50–59; PULSE 54–80; RESP 16–20; TEMP 97.5–98.4; O2SAT 96–99
[2024-05-11 07:32] LABS: Hematocrit 38.8 % (41.0-53.0); Hemoglobin 13.1 g/dL (13.5-17.5); Mean Corpuscular Hemoglobin 29.3 pg (28.0-32.0); Mean Corpuscular Hgb Conc. 33.9 g/dL (32.0-36.0); Mean Corpuscular Volume 86.6 fL (80.0-100.0); Red Blood Cells 4.49 10^6/uL (4.5-5.90); Red Cell Distribution Width 14.8 % (11.8-14.3); White Blood Cell 7.2 10^3/uL (4.4-10.8)
[2024-05-11 07:47] LABS: Band Neutrophils % (manual) 0; Basophils % (manual) 0 (0.0-2.0); Blast Cells 0; Eosinophils % (manual) 0 (0-7); Metamyelocytes % 0; Myelocytes % 0; Promyelocytes % 0; Reactive Lymphocytes 0
[2024-05-11 07:57] LABS: Albumin 3.5 g/dL (3.2-4.8); Alkaline Phosphatase 51 U/L (46-116); Anion Gap 8 (5-15); Aspartate Aminotransferase 9 U/L (13-40); BUN/Creatinine Ratio 26.1 (10.0-20.0); Bilirubin, Total 0.5 mg/dL (0.2-1.0); Blood Urea Nitrogen 18 mg/dL (9-23); Calcium 8.7 mg/dL (8.5-10.1); Carbon Dioxide 23 mmol/L (20-30); Chloride 105 mmol/L (98-107); Glucose 145 mg/dL (74-106); Potassium 4.2 mmol/L (3.5-5.1); Sodium 136 mmol/L (136-145); Total Protein 5.9 g/dL (5.7-8.2)
[2024-05-11 07:58] LABS: Alanine Aminotransferase < 9 U/L (7-40)
[2024-05-11 08:44] LABS: Lymphocytes % (manual) 17 (10.0-50.0); Monocytes % (manual) 10 (0-12); Platelet Estimate Adequate
[2024-05-11] MEDS ORDERED: HYDR-4902 PO (10:41)
[2024-05-11] MEDS: MORPHINE SULFATE INJ 2 MG/ml SYRG IV PRN (15:05)
[2024-05-12 05:00] VITALS: BP 154/54; PULSE 65; RESP 18; TEMP 98.3; O2SAT 98
[2024-05-12 05:36] LABS: Hematocrit 38.5 % (41.0-53.0); Mean Corpuscular Hemoglobin 29.3 pg (28.0-32.0); Mean Corpuscular Hgb Conc. 33.7 g/dL (32.0-36.0); Mean Corpuscular Volume 87.1 fL (80.0-100.0); Red Blood Cells 4.42 10^6/uL (4.5-5.90); Red Cell Distribution Width 15.1 % (11.8-14.3); White Blood Cell 9.5 10^3/uL (4.4-10.8)
[2024-05-12 05:55] LABS: Albumin 3.2 g/dL (3.2-4.8); Alkaline Phosphatase 47 U/L (46-116); Anion Gap 8 (5-15); Aspartate Aminotransferase 11 U/L (13-40); BUN/Creatinine Ratio 19.1 (10.0-20.0); Blood Urea Nitrogen 13 mg/dL (9-23); Calcium 8.8 mg/dL (8.7-10.4); Carbon Dioxide 22 mmol/L (20-30); Chloride 108 mmol/L (98-107); Glucose 111 mg/dL (74-106); Potassium 3.7 mmol/L (3.5-5.1); Sodium 138 mmol/L (136-145)
[2024-05-12 05:56] LABS: Bilirubin, Total 0.5 mg/dL (0.2-1.0); Total Protein 5.7 g/dL (5.7-8.2)
[2024-05-12 06:18] LABS: Basophils % (manual) 0 (0.0-2.0); Blast Cells 0; Myelocytes % 0; Promyelocytes % 0; Reactive Lymphocytes 0
[2024-05-12 06:30] LABS: Alanine Aminotransferase < 9 U/L (7-40)
[2024-05-12 08:00] VITALS: PULSE 59; RESP 18; O2SAT 96
[2024-05-12 08:30] VITALS: BP 105/57; PULSE 59; RESP 19; TEMP 98.3; O2SAT 96
[2024-05-12 09:56] LABS: Band Neutrophils % (manual) 5; Eosinophils % (manual) 1 (0-7); Lymphocytes % (manual) 24 (10.0-50.0); Metamyelocytes % 2; Monocytes % (manual) 11 (0-12); Platelet Estimate Adequate
[2024-05-12 13:00] VITALS: BP 173/57; PULSE 64; RESP 19; TEMP 97.3; O2SAT 95
[2024-05-12] MEDS: FAMOTIDINE 20 MG TAB PO SCH (15:45)
[2024-05-12] MEDS ORDERED: POLY335015 PO (16:01)
[2024-05-12] MEDS: POLYETHYLENE GLYCOL 17 GM PWDR PO PRN (16:46)
[2024-05-12 17:00] VITALS: BP 149/68; PULSE 81; RESP 19; TEMP 98.5; O2SAT 96
[2024-05-12] MEDS: GLYCERIN ADULT RECTAL SUPP PR ONE (17:54)
[2024-05-12 20:00] VITALS: BP 142/74; PULSE 78; RESP 18; TEMP 98.6; O2SAT 95
== END 2024-05-12 20:40 | disposition left against medical advice (07) | DRG 354 ==
LOC: ER 13:47 → EDBD 13:47 → EDUNIT# 13:47 → OVERFLOW 17:52 → CENTRAL 18:29
PROVIDERS: ADMIT Student in an Organized Health Care Education/Training Program; ATTEND Student in an Organized Health Care Education/Training Program
PROC: 0WUF0JZ Supplement Abdominal Wall with Synthetic Substitute, Open Approach (ICD-10-PCS; principal; 2024-05-10 13:21)
DX: K43.6 Other and unspecified ventral hernia with obstruction, without gangrene (principal); Z68.41 Body mass index [BMI] 40.0-44.9, adult; I11.0 Hypertensive heart disease with heart failure; E11.9 Type 2 diabetes mellitus without complications; E66.01 Morbid (severe) obesity due to excess calories; I50.9 Heart failure, unspecified; K43.0 Incisional hernia with obstruction, without gangrene; K66.0 Peritoneal adhesions (postprocedural) (postinfection); N40.0 Benign prostatic hyperplasia without lower urinary tract symptoms; J44.89 Other specified chronic obstructive pulmonary disease; K21.9 Gastro-esophageal reflux disease without esophagitis; Z71.3 Dietary counseling and surveillance; I25.2 Old myocardial infarction; Z95.1 Presence of aortocoronary bypass graft; Z85.038 Personal history of other malignant neoplasm of large intestine; Z80.0 Family history of malignant neoplasm of digestive organs; Z82.49 Family history of ischemic heart disease and other diseases of the circulatory system; Z83.3 Family history of diabetes mellitus
CPT/HCPCS: 36415; 71045; 80053; 82962; 83036; 83690; 84484; 85007; 85025; 85027; 85610; 85730; 86900; 86901; 88302; 93005; 97110; 97116; 97163; 97530; G0378; J1100; J1956; J2001; J2250; J2405

== ENCOUNTER 2024-05-15 15:00 | Emergency (ER) | payer OTHER, MEDICAID ==
[~2024-05-15] VITALS: Ht 167.6 cm; Wt 109.0 kg
[~2024-05-15 15:00] MED LIST changes: +HYDR-4902 PO; +POLY335015 PO
[2024-05-15 15:20] VITALS: PULSE 71; RESP 24; O2SAT 95
[2024-05-15 15:33] LABS: Basophils # (auto) 0.1 10 ^3/uL (0-0.2); Basophils % (auto) 0.7 % (0.0-2.0); Eosinophils # (auto) 0.3 10 ^3/uL (0-0.8); Eosinophils % (auto) 2.6 % (0.0-7.0); Hematocrit 36.8 % (41.0-53.0); Hemoglobin 12.5 g/dL (13.5-17.5); Lymphocytes # (auto) 1.7 10 ^3/uL (0.4-5.4); Lymphocytes % (auto) 16.4 % (10.0-50.0); Mean Corpuscular Hemoglobin 29.2 pg (28.0-32.0); Mean Corpuscular Volume 85.9 fL (80.0-100.0); Monocytes # (auto) 0.8 10 ^3/uL (0-1.3); Monocytes % (auto) 7.7 % (0.0-12.0); Neutrophils # (auto) 7.5 10 ^3/uL (1.6-8.6); Neutrophils % (auto) 72.6 % (37.0-80.0); Nucleated Red Blood Cells % 0.1 %; Red Blood Cells 4.28 10^6/uL (4.5-5.90); Red Cell Distribution Width 14.9 % (11.8-14.3); White Blood Cell 10.3 10^3/uL (4.4-10.8)
[2024-05-15 15:47] LABS: Alanine Aminotransferase 10 U/L (7-40); Albumin 3.4 g/dL (3.2-4.8); Alkaline Phosphatase 59 U/L (46-116); Anion Gap 7 (5-15); Aspartate Aminotransferase 9 U/L (13-40); BUN/Creatinine Ratio 15.6 (10.0-20.0); Blood Urea Nitrogen 12 mg/dL (9-23); Calcium 8.7 mg/dL (8.7-10.4); Carbon Dioxide 25 mmol/L (20-30); Chloride 106 mmol/L (98-107); Glucose 164 mg/dL (74-106); Magnesium 1.6 mg/dL (1.6-2.6); Potassium 3.8 mmol/L (3.5-5.1); Sodium 138 mmol/L (136-145)
[2024-05-15 15:48] LABS: Bilirubin, Total 0.5 mg/dL (0.2-1.0)
[2024-05-15 16:06] LABS: INR 1.1 (0.9-1.15); Partial Thromboplastin Time 33.6 SEC (24.5-34.5); Prothrombin Time 11.6 sec (9.3-11.8)
[2024-05-15 17:00] VITALS: BP 127/89; PULSE 68; RESP 22; TEMP 99.1; O2SAT 96
== END 2024-05-15 17:27 | disposition home or self-care (01) ==
LOC: EDBD 15:00 → ER 15:00
DX: R07.89 Other chest pain (principal); J45.909 Unspecified asthma, uncomplicated; I11.0 Hypertensive heart disease with heart failure; I50.9 Heart failure, unspecified; K21.9 Gastro-esophageal reflux disease without esophagitis; J44.9 Chronic obstructive pulmonary disease, unspecified; E11.9 Type 2 diabetes mellitus without complications; I25.2 Old myocardial infarction; E07.9 Disorder of thyroid, unspecified; Z90.49 Acquired absence of other specified parts of digestive tract; Z88.8 Allergy status to other drugs, medicaments and biological substances; Z88.6 Allergy status to analgesic agent; Z88.0 Allergy status to penicillin; Z79.899 Other long term (current) drug therapy
CPT/HCPCS: 36415; 71045; 80053; 83735; 83880; 84484; 85025; 85610; 85730; 93005

== ENCOUNTER 2025-03-27 01:32 | Emergency (ER) | payer MEDICAID, OTHER ==
[~2025-03-27] VITALS: Ht 172.7 cm; Wt 90.9 kg
--- NOTE | 2025-03-27 01:57 | ED.PDOC ---
HPI Comments 89 year old male who came to ER via EMS for chest pains. Patient has a history of hypertension, diabetes, dyslipidemia, coronary artery disease, COPD, status post CABG, status post cardiac stents. Patient has been experiencing chest pain since 11 p.m. last night. Chest pain described to be ache, pressure, constant, left-sided, radiating to his left arm. Self-medicated with 4 aspirin and 2 nitroglycerin at home which offered no relief. He denies any shortness of breath, nausea or vomiting Chief Complaint: Chest Pain Time Seen by MD: 01:56 Primary Care Provider: HYUN Reviewed Notes: Nurses Notes, Manager Talent Acquisition Notes Allergies: Coded Allergies: Celecoxib (Verified Allergy, Unknown, 11/24/18) Esomeprazole (Verified Allergy, Unknown, 11/24/18) Iodine (Verified Allergy, Unknown, 11/06/18) Penicillins (Verified Allergy, Unknown, 11/24/18) Home Meds Active Scripts Polyethylene Glycol 3350 (Miralax) 17 Gm Pow, 17 GM PO BID PRN for 30 Days, #30 POW 2 Refills Take twice a day, 17gm as needed for constipation. Prov:BHUPINDER PUENTES DO 05/12/24 Metoprolol Tartrate (Lopressor) 25 Mg Tb, 25 MG PO Q12HR for 90 Days, #180 TAB 0 Refills Prov:CARY HANCOCK MD 06/17/23 Lisinopril (Lisinopril) 5 Mg Tab, 2.5 MG PO DAILY for 90 Days, #45 TAB 0 Refills Prov:CARY HANCOCK MD 06/17/23 Aspirin (Aspirin Low Dose) 81 Mg Tab, 81 MG PO DAILY for 90 Days, #90 TAB 0 Refills Prov:CARY HANCOCK MD 06/17/23 Clopidogrel Bisulfate (CLOPIDOGREL) 75 Mg Tab, 75 MG PO DAILY for 90 Days, #90 TAB 0 Refills Prov:CARY HANCOCK MD 06/17/23 Reported Medications Hydrocodone-Acetaminophen (Hydrocodone Bitartrate/AC 5-325 mg) 1 Tab Tab, 1 TAB PO Q8HR PRN for PAIN 05/11/24 Carvedilol (Carvedilol) 3.125 Mg Tab, 3.125 MG PO BID, MG 10/06/23 Finasteride (Finasteride) 5 Mg Tab, 5 MG PO DAILY, MG 10/06/23 Simvastatin (Simvastatin) 10 Mg Tab, 2 TAB PO QPM, #90 TAB 3 Refills 10/06/23 Mirabegron Base (MYRBETRIQ) 50 Mg Tab, 50 MG PO DAILY, TAB 04/10/22 Bisacodyl (Bisacodyl Ec) 5 Mg Tab, 5 MG PO DAILY, TAB 04/10/22 Sitagliptin Phosphate (Januvia) 100 Mg Tab, 100 MG PO DAILY, TAB 04/10/22 Metformin Hydrochloride (Metformin Hcl) 500 Mg Tab, 1000 MG PO BID for 30 Days, MG 04/10/22 Pioglitazone Hydrochloride (ACTOS TABLET) 30 Mg Tb, 30 MG PO DAILY, TAB 04/10/22 Tamsulosin HCl (Tamsulosin Hydrochloride) 0.4 Mg Cap, 0.4 MG PO DAILY, CAP 04/10/22 Gabapentin (Gabapentin) 600 Mg Tab, 1 TAB PO BID, #90 TAB 3 Refills 11/25/18 Fluoxetine Hcl (Fluoxetine Hcl) 10 Mg Tab, 10 MG PO QAM 11/25/18 Information Source: Patient Mode of Arrival: EMS Severity: Moderate Timing: Hours Duration: Since onset Prehospital treatment: None Location: Chest (L) Radiation: Arm (L) Quality: Pressure Onset: With Light Exertion Cardiac Risk Factors: Hyperlipidemia, HTN, Diabetes History of: Similar pain in past Past Medical History PAST MEDICAL HISTORY: Asthma, Cancer, CHF, COPD, DM, GERD, HTN, FL, Thyroid Surgical History: Appendectomy, CABG, Hernia Repair, PTCA Family History Family History: Reviewed,noncontributory to illness Social History Smoker: Non-Smoker Alcohol: Denies ETOH Use Drugs: Denies Drug Use Lives In: Home Constitutional: reports: weakness; denies: chills, diaphoresis, fatigue, fever, malaise, sweats, others EENTM: denies: blurred vision, double vision, ear bleeding, ear discharge, ear drainage, ear pain, ear ringing, eye pain, eye redness, hearing loss, mouth pain, mouth swelling, nasal discharge, nose bleeding, nose congestion, nose pain, photophobia, tearing, throat pain, throat swelling, voice changes, others Respiratory: denies: cough, hemoptysis, orthopnea, SOB at rest, shortness of breath, SOB with excertion, stridor, wheezing, others Cardiovascular: reports: chest pain, left arm pain; denies: dizzy spells, diaphoresis, Dyspnea on exertion, edema, irregular heart beat, lightheadedness, palpitations, PND, syncope, others Gastrointestinal: denies: abdomen distended, abdominal pain, blood streaked bowels, constipated, diarrhea, dysphagia, difficulty swallowing, hematemesis, melena, nausea, poor appetite, poor fluid intake, rectal bleeding, rectal pain, vomiting, others Genitourinary: denies: burning, dysuria, flank pain, frequency, hematuria, incontinence, penile discharge, penile sore, pain, testicle pain, testicle swelling, urgency, others Neurological: denies: dizziness, fainting, headache, left sided numbness, left sided weakness, numbness, paresthesia, pre-existing deficit, right sided numbness, right sided weakness, seizure, speech problems, tingling, tremors, weakness, others Musculoskeletal: denies: back pain, gout, joint pain, joint swelling, muscle pain, muscle stiffness, neck pain, others Integumetry: denies: bruises, change in color, change in hair/nails, dryness, laceration, lesions, lumps, rash, wounds, others Allergic/Immunocompromised: denies: Difficulty Healing, Frequent Infections, Hives, Itching, others Hematologic/Lymphatic: denies: anemia, blood clots, easy bleeding, easy bruising, swollen glands, others Endocrine: denies: excessive hunger, excessive sweating, excessive thirst, excessive urination, flushing, intolerance to cold, intolerance to heat, unexplained weight gain, unexplained weight loss, others Psychiatric: denies: anxiety, bipolar disorder, depression, hopeless, panic disorder, schizophrenia, sleepless, suicidal, others Physical Exam General Appearance: No Apparent Distress, Normal HEENT: Normal ENT Inspection, Pharynx Normal, TMs Normal Neck: Full Range of Motion, Non-Tender, Normal, Normal Inspection Respiratory: Chest Non-Tender, Lungs Clear, No Accessory Muscle Use, No Respiratory Distress, Normal Breath Sounds Cardiovascular: No Edema, No JVD, No Murmur, No Gallop, Normal Peripheral Pulses, Regular Rate/Rhythm Breast Exam: Deferred Gastrointestinal: No Organomegaly, Non Tender, No Pulsatile Mass, Normal Bowel Sounds, Soft Genitalia: Deferred Pelvic: Deferred Rectal: Deferred Extremities: No calf tenderness, Normal capillary refill, Normal inspection, Normal range of motion, Non-tender, No pedal edema Musculoskeletal : Apperance: Normal Neurologic: Alert, tree surgeon II-XII nml as Tested, No Motor Deficits, Normal Affect, Normal Mood, No Sensory Deficits Cerebellar Function: Normal Reflexes: Normal Skin: Dry, Normal Color, Warm Lymphatic: No Adenopathy Was a procedure done? Was a procedure done?: No CP Differential Dx Differential Diagnosis: Angina, Anxiety / Panic Attack, Hyperventilation, PVC's, Sinus Tachycardia Differential Diagnosis: Angina, Chest Wall Pain, Cholelithiasis, Costochondritis, Esophageal reflux/spasm, Gastritis, Myocardial Infarction, Pneumonia X-Ray, Labs, Meds, VS Vital Signs Date Time Temp Pulse Resp B/P (MAP) Pulse Ox O2 Delivery O2 Flow Rate FiO2 03/27/25 02:52 62 11 122/54 03/27/25 02:36 59 03/27/25 02:22 53 10 127/48 03/27/25 02:00 Room Air* 0 21 03/27/25 02:00 98.0 53 10 127/48 (74) 96 98.0 03/27/25 01:47 97.8 58 14 139/81 (100) 100 97.8 03/27/25 01:38 58 Lab Test 03/27/25 02:48 03/27/25 01:47 03/27/25 01:45 Range/Units Troponin I High Sensitivity 7 7 </=54 ng/L White Blood Count 6.0 4.4-10.8 10^3/uL Red Blood Count 4.22 L 4.5-5.90 10^6/uL Hemoglobin 12.4 L 13.5-17.5 g/dL Hematocrit 37.9 L 41.0-53.0 % Mean Corpuscular Volume 89.8 80.0-100.0 fL Mean Corpuscular Hemoglobin 29.4 28.0-32.0 pg Mean Corpuscular Hemoglobin Concent 32.8 32.0-36.0 g/dL Red Cell Distribution Width 16.2 H 11.8-14.3 % Platelet Count 192 140-450 10^3/uL Mean Platelet Volume 6.9 6.9-10.8 fL Neutrophils (%) (Auto) 53.6 37.0-80.0 % Lymphocytes (%) (Auto) 32.1 10.0-50.0 % Monocytes (%) (Auto) 10.8 0.0-12.0 % Eosinophils (%) (Auto) 2.5 0.0-7.0 % Basophils (%) (Auto) 1.0 0.0-2.0 % Neutrophils # (Auto) 3.2 1.6-8.6 10 ^3/uL Lymphocytes # (Auto) 1.9 0.4-5.4 10 ^3/uL Monocytes # (Auto) 0.6 0-1.3 10 ^3/uL Eosinophils # (Auto) 0.2 0-0.8 10 ^3/uL Basophils # (Auto) 0.1 0-0.2 10 ^3/uL Nucleated Red Blood Cells 0.2 % Prothrombin Time 11.7 9.3-11.8 sec Prothrombin Time INR 1.12 0.9-1.15 Activated Partial Thromboplast Time 32.5 24.5-34.5 SEC Sodium Level 140 136-145 mmol/L Potassium Level 3.7 3.5-5.1 mmol/L Chloride Level 104 98-107 mmol/L Carbon Dioxide Level 27 20-31 mmol/L Anion Gap 9 5-15 Blood Urea Nitrogen 25 H 9-23 mg/dL Creatinine 0.81 0.700-1.30 mg/dL Glomerular Filtration Rate Calc 85 >90 mL/min BUN/Creatinine Ratio 30.9 H 10.0-20.0 Serum Glucose 101 74-106 mg/dL Calcium Level 8.6 L 8.7-10.4 mg/dL Total Bilirubin 0.4 0.2-1.0 mg/dL Aspartate Amino Transferase (AST) 12 L 13-40 U/L Alanine Aminotransferase (ALT) < 9 7-40 U/L Alkaline Phosphatase 57 46-116 U/L Total Protein 6.1 5.7-8.2 g/dL Albumin 3.6 3.2-4.8 g/dL POC Glucose 96 70-106 mg/dl Current Medications Medications (Trade) Dose Ordered Sig/Krystian Route Start Time Stop Time Status Last Admin Ondansetron HCl (Zofran) 4 mg ONCE ONCE IV 03/27/25 02:00 03/27/25 02:01 DC 03/27/25 02:23 Morphine Sulfate 4 mg ONCE ONCE IV 03/27/25 02:00 03/27/25 02:01 DC 03/27/25 02:22 Time of 1ST Reevaluation: 01:52 Reevaluation 1ST: Unchanged Patient Education/Counseling: Diagnosis, Treatment Family Education/Counseling: No Family Present Departure 1 Departure Time of Disposition: 04:18 Impression: Primary Impression: Acute coronary syndrome Disposition: 09 ADMITTED INPATIENT Admit to: Tele Condition: Guarded Discharged With: Self Comments Chest Pain in Patient with Known CAD Chief Complaint: Substernal chest pain History of Present Illness: 89-year-old male presents to the Emergency Department with dull substernal chest pain. The pain was partially relieved with nitroglycerin administration. Of note, the patient has significant cardiac history including coronary artery disease with previous coronary artery bypass graft (CABG) and stent placements. Review of Systems: Limited by acute presentation Cardiovascular: Positive for chest pain Medications: Nitroglycerin (as mentioned in HPI) Complete medication list pending Allergies: No known allergies documented Past Medical History: 1. Coronary artery disease 2. Hypertension 3. Diabetes mellitus Past Surgical History: 1. 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 Problem List: 1. Acute chest pain 2. Known coronary artery disease 3. Borderline anemia 4. Cardiomegaly Differential Diagnosis: 1. Acute coronary syndrome 2. Unstable angina 3. Non-ST elevation myocardial infarction 4. ST elevation myocardial infarction 5. Stable angina ED Course: Patient presented with chest pain, received nitroglycerin with partial relief. Initial workup included CBC, BMP, cardiac enzymes, and chest x- ray. Given presentation and history, decision made to admit for further cardiac evaluation. Assessment and Plan: 1. Acute Chest Pain/Suspected Acute Coronary Syndrome: - Admit to cardiology service for further evaluation and management - Continue cardiac monitoring - Serial troponins - Cardiology consultation 2. Borderline Anemia: - Will need outpatient follow-up for further evaluation 3. Cardiomegaly: - To be evaluated in context of current cardiac presentation Billing Information: ICD-10: I20.0 - Unstable angina ICD-10: I25.10 - Atherosclerotic heart disease of [place] coronary artery ICD-10: Z95.1 - Presence of aortocoronary bypass graft Critical Care Note Critical Care Time?: Yes (35 min-critical care time only) Critical care comment: Acute chest pains Total critical care time: Approximately 36 minutes Due to a high probability of clinically significant, life threatening deterioration, the patient required my highest level of preparedness to intervene emergently and I personally spent this critical care time directly and personally managing the patient. This critical care time included obtaining a history; examining the patient; pulse oximetry; ordering and review of studies; arranging urgent treatment with development of a management plan; evaluation of patient's response to treatment; frequent reassessment; and, discussions with other providers. This critical care time was performed to assess and manage the high probability of imminent, life-threatening deterioration that could result in multi-organ failure. It was exclusive of separately billable procedures and treating other patients. Stability Stability form required: No Heart Score Heart Score: Heart Score Response (Comments) Value History Moderate Suspicious 1 EKG Repolarization Disturb 1 Age >65 2 Risk Factors >3 or Hx ASHD 2 Troponin Normal limit 0 Total 6 I personally scribed for DOMINIK BARNES MD ([email or web address]) on 03/27/25 at 01:56. Electronically submitted by Mitesh Stringer ([email or web address]). DOMINIK BARNES MD March 27, 2025 01:56
[2025-03-27 02:19] LABS: Basophils # (auto) 0.1 10 ^3/uL (0-0.2); Eosinophils # (auto) 0.2 10 ^3/uL (0-0.8); Eosinophils % (auto) 2.5 % (0.0-7.0); Hematocrit 37.9 % (41.0-53.0); Hemoglobin 12.4 g/dL (13.5-17.5); Lymphocytes # (auto) 1.9 10 ^3/uL (0.4-5.4); Lymphocytes % (auto) 32.1 % (10.0-50.0); Mean Corpuscular Hemoglobin 29.4 pg (28.0-32.0); Mean Corpuscular Hgb Conc. 32.8 g/dL (32.0-36.0); Mean Corpuscular Volume 89.8 fL (80.0-100.0); Monocytes # (auto) 0.6 10 ^3/uL (0-1.3); Monocytes % (auto) 10.8 % (0.0-12.0); Neutrophils # (auto) 3.2 10 ^3/uL (1.6-8.6); Neutrophils % (auto) 53.6 % (37.0-80.0); Nucleated Red Blood Cells % 0.2 %; Platelet Count (auto) 192 10^3/uL (140-450); Red Blood Cells 4.22 10^6/uL (4.5-5.90); Red Cell Distribution Width 16.2 % (11.8-14.3)
[2025-03-27] MEDS: ASPirin 81 mg TAB PO ONE (02:19)
[2025-03-27] MEDS: MORPHINE SULFATE 4 MG/ML SYR/VIAL IV ONE (02:22)
[2025-03-27] MEDS: ONDANSETRON HCL 4 MG/2 ML VIAL IV ONE (02:23)
[2025-03-27 02:27] LABS: Albumin 3.6 g/dL (3.2-4.8); Alkaline Phosphatase 57 U/L (46-116); Anion Gap 9 (5-15); BUN/Creatinine Ratio 30.9 (10.0-20.0); Bilirubin, Total 0.4 mg/dL (0.2-1.0); Carbon Dioxide 27 mmol/L (20-31); Chloride 104 mmol/L (98-107); Glucose 101 mg/dL (74-106); Potassium 3.7 mmol/L (3.5-5.1); Sodium 140 mmol/L (136-145); Total Protein 6.1 g/dL (5.7-8.2)
[2025-03-27 02:28] LABS: Alanine Aminotransferase < 9 U/L (7-40); Aspartate Aminotransferase 12 U/L (13-40); Blood Urea Nitrogen 25 mg/dL (9-23); Calcium 8.6 mg/dL (8.7-10.4)
[2025-03-27 02:31] LABS: INR 1.12 (0.9-1.15); Partial Thromboplastin Time 32.5 SEC (24.5-34.5); Prothrombin Time 11.7 sec (9.3-11.8)
--- NOTE | 2025-03-27 02:38 | ECG ---
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
--- NOTE | 2025-03-27 04:05 | DVH ---
CHEST RADIOGRAPH Indication: chest pain Technique: Single frontal view of the chest was obtained Comparison: XY CHEST PORTABLE on DOS: 05/15/24, XY CHEST XRAY 1 VIEW on DOS: 05/09/24, XY CHEST XRAY 1 V IEW on DOS: 01/19/24 IMPRESSION: Heart appears enlarged. There are median sternotomy wires. No sizable effusion, focal airspace opaci ty, or pneumothorax.
[2025-03-27 06:00] VITALS: TEMP 98
--- NOTE | 2025-03-27 06:26 | ECG ---
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
[2025-03-27 08:12] VITALS: BP 108/77; PULSE 61; RESP 18; O2SAT 95
--- NOTE | 2025-03-27 14:00 | DVHDS2 ---
Physician Discharge Progress N Final Diagnosis: CAD CHF Operations or Procedures: Operations or Procedures none Other Interventions Other Interventions lab results, EKG, CXR Consultations: Consultations none Commentary: Commentary 89 year old male with CAD, s/p CABG, CHF COPD, DM, HTN arrived to the ER c/o intermittent precordial chest pain for the past few hours. He stated that hte pain was dull and radiating to his left arm. Patient took ASA and NTG before he arrived to the ER. By the time he arrived to the ER, his pain subsided. His CXR showed cardiomegaly without acute changes. His labs were unremarkable including 3 normal troponin results. His VS were sable and he was discharged home with recommendation to f/u with his complex director in 3 days. Patient verbalized understanding and agreement. Condition on Discharge: Stable Disposition: Home SNF Discharge Will this Physician continue t: No Discharge Instructions: Diet: Consistent carbohydrate, Cardiac 2g Na,low cholest Activity: No Restrictions, As Tolerated Follow Up/Referral: [facility] will schedule an outpatient cardiology appontment in 3 days and coordinate with the patient Medications: Continue home medications Follow Up Care: Discharge Statement: "Patient was advised to return to the ER or call 911 if any headaches, dizziness, shortness of breath, chest pain, abdominal pain, bleeding, fevers, or worsening of medical condition. Patient was counseled about treatment plan, medications, possible side effects, patientverbalized understanding. All questions were answered to the best of my ability. This discharge took greater then 30 minutes in planning, reviewing documentation, counseling the patient, and discussing with other team members." SLIME TROTTER MD March 27, 2025 14:00
== END 2025-03-27 08:30 | disposition home or self-care (01) ==
LOC: EDUNIT# 01:32 → ER 01:32 → EDBD 01:32 → ER 08:30
DX: I24.9 Acute ischemic heart disease, unspecified (principal); J45.909 Unspecified asthma, uncomplicated; I11.0 Hypertensive heart disease with heart failure; I50.9 Heart failure, unspecified; E11.9 Type 2 diabetes mellitus without complications; E78.5 Hyperlipidemia, unspecified; Z98.890 Other specified postprocedural states; Z79.899 Other long term (current) drug therapy; Z88.0 Allergy status to penicillin; Z95.1 Presence of aortocoronary bypass graft
CPT/HCPCS: 36415; 71045; 80053; 82947; 84484; 85025; 85610; 85730; 93005; 96374; 96375; 99285; J2270; J2405; 82962

== ENCOUNTER 2025-05-01 11:24 | Emergency (ER) | payer OTHER, MEDICAID ==
[~2025-05-01] VITALS: Ht 170.2 cm; Wt 136.4 kg
--- NOTE | 2025-05-01 11:41 | ECG ---
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
--- NOTE | 2025-05-01 11:54 | ED.PDOC ---
HPI Comments 89 year old male presents to the ED via EMS with a chief complaint of chest pain onset today (05/01/25) around 05:00. Patient states he woke up around 05:00, experiencing reproducible LT sided chest pain, worsen with palpation. Patient was seen in this ED multiple time for similar symptoms. PMHx asthma, cancer, CHF, COPD, DM, GERD, HTN, HI, thyroid, HLD. Denies shortness of breath, headache, dizziness, nausea, vomiting, diarrhea, abdominal pain, fevers, chills. No other symptoms or modifying factors present at this time. Chief Complaint: Chest Pain Time Seen by MD: 11:45 Primary Care Provider: HYUN Reviewed Notes: Medications, Allergies Allergies: Coded Allergies: Celecoxib (Verified Allergy, Unknown, 11/24/18) Esomeprazole (Verified Allergy, Unknown, 11/24/18) Iodine (Verified Allergy, Unknown, 11/06/18) Penicillins (Verified Allergy, Unknown, 11/24/18) Home Meds Active Scripts Polyethylene Glycol 3350 (Miralax) 17 Gm Pow, 17 GM PO BID PRN for 30 Days, #30 POW 2 Refills Take twice a day, 17gm as needed for constipation. Prov:BHUPINDER PUENTES DO 05/12/24 Metoprolol Tartrate (Lopressor) 25 Mg Tb, 25 MG PO Q12HR for 90 Days, #180 TAB 0 Refills Prov:CARY HANCOCK MD 06/17/23 Lisinopril (Lisinopril) 5 Mg Tab, 2.5 MG PO DAILY for 90 Days, #45 TAB 0 Refills Prov:CARY HANCOCK MD 06/17/23 Aspirin (Aspirin Low Dose) 81 Mg Tab, 81 MG PO DAILY for 90 Days, #90 TAB 0 Refills Prov:CARY HANCOCK MD 06/17/23 Clopidogrel Bisulfate (CLOPIDOGREL) 75 Mg Tab, 75 MG PO DAILY for 90 Days, #90 TAB 0 Refills Prov:CARY HANCOCK MD 06/17/23 Reported Medications Hydrocodone-Acetaminophen (Hydrocodone Bitartrate/AC 5-325 mg) 1 Tab Tab, 1 TAB PO Q8HR PRN for PAIN 05/11/24 Carvedilol (Carvedilol) 3.125 Mg Tab, 3.125 MG PO BID, MG 10/06/23 Finasteride (Finasteride) 5 Mg Tab, 5 MG PO DAILY, MG 10/06/23 Simvastatin (Simvastatin) 10 Mg Tab, 2 TAB PO QPM, #90 TAB 3 Refills 10/06/23 Mirabegron Base (MYRBETRIQ) 50 Mg Tab, 50 MG PO DAILY, TAB 04/10/22 Bisacodyl (Bisacodyl Ec) 5 Mg Tab, 5 MG PO DAILY, TAB 04/10/22 Sitagliptin Phosphate (Januvia) 100 Mg Tab, 100 MG PO DAILY, TAB 04/10/22 Metformin Hydrochloride (Metformin Hcl) 500 Mg Tab, 1000 MG PO BID for 30 Days, MG 04/10/22 Pioglitazone Hydrochloride (ACTOS TABLET) 30 Mg Tb, 30 MG PO DAILY, TAB 04/10/22 Tamsulosin HCl (Tamsulosin Hydrochloride) 0.4 Mg Cap, 0.4 MG PO DAILY, CAP 04/10/22 Gabapentin (Gabapentin) 600 Mg Tab, 1 TAB PO BID, #90 TAB 3 Refills 11/25/18 Fluoxetine Hcl (Fluoxetine Hcl) 10 Mg Tab, 10 MG PO QAM 11/25/18 Information Source: Patient, Emergency Med Personnel Mode of Arrival: EMS Severity: Moderate Timing: Hours Duration: Since onset Prehospital treatment: None Location: Chest (L) Radiation: No Radiation Quality: Sharp Onset: At Rest Cardiac Risk Factors: Hyperlipidemia, HTN, Diabetes PE Risk Factors: None History of: Similar pain in past, HI Past Medical History PAST MEDICAL HISTORY: Asthma, Cancer, CHF, COPD, DM, GERD, HTN, HI, Thyroid Surgical History: Appendectomy, CABG, Hernia Repair, PTCA Family History Family History: Reviewed,noncontributory to illness Social History Smoker: Non-Smoker Alcohol: Denies ETOH Use Drugs: Denies Drug Use Lives In: Home Constitutional: denies: chills, diaphoresis, fatigue, fever, malaise, sweats, weakness, others EENTM: denies: blurred vision, double vision, ear bleeding, ear discharge, ear drainage, ear pain, ear ringing, eye pain, eye redness, hearing loss, mouth pain, mouth swelling, nasal discharge, nose bleeding, nose congestion, nose pain, photophobia, tearing, throat pain, throat swelling, voice changes, others Respiratory: denies: cough, hemoptysis, orthopnea, SOB at rest, shortness of breath, SOB with excertion, stridor, wheezing, others Cardiovascular: reports: chest pain; denies: dizzy spells, diaphoresis, Dyspnea on exertion, edema, irregular heart beat, left arm pain, lightheadedness, palpitations, PND, syncope, others Gastrointestinal: denies: abdomen distended, abdominal pain, blood streaked bowels, constipated, diarrhea, dysphagia, difficulty swallowing, hematemesis, melena, nausea, poor appetite, poor fluid intake, rectal bleeding, rectal pain, vomiting, others Genitourinary: denies: burning, dysuria, flank pain, frequency, hematuria, incontinence, penile discharge, penile sore, pain, testicle pain, testicle swelling, urgency, others Neurological: denies: dizziness, fainting, headache, left sided numbness, left sided weakness, numbness, paresthesia, pre-existing deficit, right sided numbness, right sided weakness, seizure, speech problems, tingling, tremors, weakness, others Musculoskeletal: denies: back pain, gout, joint pain, joint swelling, muscle pain, muscle stiffness, neck pain, others Integumetry: denies: bruises, change in color, change in hair/nails, dryness, laceration, lesions, lumps, rash, wounds, others Allergic/Immunocompromised: denies: Difficulty Healing, Frequent Infections, Hives, Itching, others Hematologic/Lymphatic: denies: anemia, blood clots, easy bleeding, easy bruising, swollen glands, others Endocrine: denies: excessive hunger, excessive sweating, excessive thirst, excessive urination, flushing, intolerance to cold, intolerance to heat, unexplained weight gain, unexplained weight loss, others Psychiatric: denies: anxiety, bipolar disorder, depression, hopeless, panic disorder, schizophrenia, sleepless, suicidal, others All Other Systems: Reviewed and Negative Physical Exam General Appearance: Normal HEENT: Normal ENT Inspection, Pharynx Normal, TMs Normal Neck: Full Range of Motion, Non-Tender, Normal, Normal Inspection Respiratory: Chest Non-Tender, Lungs Clear, No Accessory Muscle Use, No Respiratory Distress, Normal Breath Sounds Cardiovascular: No Edema, No Gallop, Other (Tenderness to palpation to LT lower chest wall) Breast Exam: Deferred Gastrointestinal: No Organomegaly, Non Tender, No Pulsatile Mass, Normal Bowel Sounds, Soft Genitalia: Deferred Pelvic: Deferred Rectal: Deferred Extremities: No calf tenderness, Normal capillary refill, Normal inspection, Normal range of motion, Non-tender, No pedal edema Musculoskeletal : Apperance: Normal Neurologic: Alert, low voltage technician II-XII nml as Tested, No Motor Deficits, Normal Affect, Normal Mood, No Sensory Deficits Cerebellar Function: Normal Reflexes: Normal Skin: Dry, Normal Color, Warm Lymphatic: No Adenopathy Was a procedure done? Was a procedure done?: No CP Differential Dx Differential Diagnosis: Angina, Anxiety / Panic Attack Differential Diagnosis: Angina, Aortic dissection, Chest Wall Pain, Cholelithiasis, Costochondritis, Esophageal reflux/spasm, Gastritis, Myocardial Infarction, Pericarditis, Pneumonia, Pneumothorax, Pulmonary Embolus X-Ray, Labs, Meds, VS Vital Signs Date Time Temp Pulse Resp B/P (MAP) Pulse Ox O2 Delivery O2 Flow Rate FiO2 05/01/25 12:39 144/93 05/01/25 12:29 98 Room Air* 0 21 05/01/25 12:25 98.2 60 18 144/93 (110) 98 98.2 05/01/25 11:32 61 05/01/25 11:31 98.2 59 19 152/70 (97) 98 98.2 Lab Test 05/01/25 12:38 05/01/25 11:52 Range/Units Troponin I High Sensitivity 4 4 </=54 ng/L White Blood Count 6.2 4.4-10.8 10^3/uL Red Blood Count 4.60 4.5-5.90 10^6/uL Hemoglobin 13.9 13.5-17.5 g/dL Hematocrit 40.4 L 41.0-53.0 % Mean Corpuscular Volume 87.8 80.0-100.0 fL Mean Corpuscular Hemoglobin 30.2 28.0-32.0 pg Mean Corpuscular Hemoglobin Concent 34.4 32.0-36.0 g/dL Red Cell Distribution Width 15.2 H 11.8-14.3 % Platelet Count 226 140-450 10^3/uL Mean Platelet Volume 6.7 L 6.9-10.8 fL Neutrophils (%) (Auto) 57.8 37.0-80.0 % Lymphocytes (%) (Auto) 30.2 10.0-50.0 % Monocytes (%) (Auto) 8.4 0.0-12.0 % Eosinophils (%) (Auto) 2.7 0.0-7.0 % Basophils (%) (Auto) 0.9 0.0-2.0 % Neutrophils # (Auto) 3.6 1.6-8.6 10 ^3/uL Lymphocytes # (Auto) 1.9 0.4-5.4 10 ^3/uL Monocytes # (Auto) 0.5 0-1.3 10 ^3/uL Eosinophils # (Auto) 0.2 0-0.8 10 ^3/uL Basophils # (Auto) 0.1 0-0.2 10 ^3/uL Nucleated Red Blood Cells 0.1 % Sodium Level 143 136-145 mmol/L Potassium Level 3.8 3.5-5.1 mmol/L Chloride Level 107 98-107 mmol/L Carbon Dioxide Level 27 20-31 mmol/L Anion Gap 9 5-15 Blood Urea Nitrogen 16 9-23 mg/dL Creatinine 0.83 0.700-1.30 mg/dL Glomerular Filtration Rate Calc 84 >90 mL/min BUN/Creatinine Ratio 19.3 10.0-20.0 Serum Glucose 128 H 74-106 mg/dL Calcium Level 9.5 8.7-10.4 mg/dL Current Medications Medications (Trade) Dose Ordered Sig/Krystian Route Start Time Stop Time Status Last Admin Aspirin 325 mg ONCE ONCE PO 05/01/25 11:45 05/01/25 11:46 DC 05/01/25 12:38 Nitroglycerin (Ntrostat Sublingual) 0.4 mg ONCE ONCE SL 05/01/25 11:45 05/01/25 11:46 DC 05/01/25 12:39 Time of 1ST Reevaluation: 12:15 Reevaluation 1ST: Unchanged Time of 2ND Reevaluation: 14:52 Reevaluation 2ND: Improved Patient Education/Counseling: Diagnosis, Treatment, Prognosis, Need For Follow Up Family Education/Counseling: No Family Present Additional Information Previous visits reviewed: 03/27/25 for CP, 04/27/24 abdominal pain, 01/18/24 abd pain, 09/25/23 abdominal pain, 06/2023 N-stemi The following tests were ordered, and results were reviewed by me: EKG-x3, TROP- x3, CBC, BMP, XY CHEST Additional Information was gathered from interviewing the following independent historians: EMS I reviewed and agreed with the following test results read by other providers: , XY CHEST, I discussed treatment and results with medical personnel and: patient Comprehensive systems review obtained and negative except for what is stated in the HPI. 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 he reports another type of pain which is completely not associated with palpation and is was associated with dizziness, sob. this pain is now completely resolved. he will be admitted SEPSIS Sepsis Screen Date sepsis recognized/suspect: May 01, 2025 Time Sepsis recognized/suspect: 102 Recent Procedure: No On Antibiotic Therapy: No Respiratory Rate >20: No Heart Rate >90: No Temp<36 C (96.8 F) or >38.3 C: No SBP <90 or MAP <65 mmHG: No New Acute Mental Status Change: No Is the patient on CPAP, BIPAP,: No Physician Orders Electrocardigram (05/01/25 12:40) Chest Portable (05/01/25 11:40) Vital Signs Date Time Temp Pulse Resp B/P (MAP) Pulse Ox O2 Delivery O2 Flow Rate FiO2 05/01/25 12:39 144/93 05/01/25 12:29 98 Room Air* 0 21 05/01/25 12:25 98.2 60 18 144/93 (110) 98 98.2 05/01/25 11:32 61 05/01/25 11:31 98.2 59 19 152/70 (97) 98 98.2 Laboratory Tests Test 05/01/25 11:52 White Blood Count 6.2 10^3/uL (4.4-10.8) Medications Medications Dose Ordered Sig/Krystian Route Start Time Stop Time Status Last Admin Dose Admin Aspirin 325 mg ONCE ONCE PO 05/01/25 11:45 05/01/25 11:46 DC 05/01/25 12:38 Nitroglycerin 0.4 mg ONCE ONCE SL 05/01/25 11:45 05/01/25 11:46 DC 05/01/25 12:39 Departure 1 Departure Time of Disposition: 14:51 Impression: Primary Impression: Chest wall pain Additional Impression: Unstable angina Disposition: 09 ADMITTED INPATIENT Admit to: Tele Condition: Serious Discharged With: Self Critical Care Note Critical Care Time?: Yes (45 min-critical care time only) Critical care comment: Due to concerns for patients condition deteriorating, the care required my highest level of attention and readiness to intervene. I assessed the patient, reviewed the medical records, ordered the appropriate tests and treatments, then reassessed for results and responsiveness. I communicated with medical personnel and consultants and formulated a plan of care. Total critical care time excludes any procedures Stability Stability form required: No Heart Score Heart Score: Heart Score Response (Comments) Value History Highly Suspicious 2 EKG Repolarization Disturb 1 Age >65 2 Risk Factors >3 or Hx ASHD 2 Troponin Normal limit 0 Total 7 I personally scribed for PAOLA ALEXANDER MD ([email or web address]) on 05/01/25 at 11:54. Electronically submitted by Agueda Norton ([email or web address]). I personally scribed for PAOLA ALEXANDER MD ([email or web address]) on 05/01/25 at 11:57. Electronically submitted by Agueda Norton ([email or web address]). PAOLA ALEXANDER MD May 01, 2025 11:54
[2025-05-01 12:02] LABS: Basophils # (auto) 0.1 10 ^3/uL (0-0.2); Basophils % (auto) 0.9 % (0.0-2.0); Eosinophils # (auto) 0.2 10 ^3/uL (0-0.8); Eosinophils % (auto) 2.7 % (0.0-7.0); Hematocrit 40.4 % (41.0-53.0); Hemoglobin 13.9 g/dL (13.5-17.5); Lymphocytes # (auto) 1.9 10 ^3/uL (0.4-5.4); Lymphocytes % (auto) 30.2 % (10.0-50.0); Mean Corpuscular Hemoglobin 30.2 pg (28.0-32.0); Mean Corpuscular Hgb Conc. 34.4 g/dL (32.0-36.0); Mean Corpuscular Volume 87.8 fL (80.0-100.0); Monocytes # (auto) 0.5 10 ^3/uL (0-1.3); Monocytes % (auto) 8.4 % (0.0-12.0); Neutrophils # (auto) 3.6 10 ^3/uL (1.6-8.6); Neutrophils % (auto) 57.8 % (37.0-80.0); Nucleated Red Blood Cells % 0.1 %; Platelet Count (auto) 226 10^3/uL (140-450); Red Cell Distribution Width 15.2 % (11.8-14.3); White Blood Cell 6.2 10^3/uL (4.4-10.8)
[2025-05-01 12:12] LABS: Chloride 107 mmol/L (98-107); Potassium 3.8 mmol/L (3.5-5.1); Sodium 143 mmol/L (136-145)
[2025-05-01 12:13] LABS: Anion Gap 9 (5-15); Carbon Dioxide 27 mmol/L (20-31)
[2025-05-01 12:14] LABS: Calcium 9.5 mg/dL (8.7-10.4)
[2025-05-01 12:18] LABS: BUN/Creatinine Ratio 19.3 (10.0-20.0); Blood Urea Nitrogen 16 mg/dL (9-23)
[2025-05-01 12:23] LABS: Glucose 128 mg/dL (74-106)
[2025-05-01 12:29] VITALS: O2SAT 98
[2025-05-01] MEDS: ASPirin 325 MG TAB PO ONE (12:38)
[2025-05-01] MEDS: NITROGLYCERIN 0.4 MG SL TAB SL ONE (12:39)
--- NOTE | 2025-05-01 12:44 | DVH ---
CHEST XRAY: 1 view(s) was obtained HISTORY: 89 years old, Male; cp. COMPARISON: XY CHEST PORTABLE on DOS: 03/27/25, XY CHEST PORTABLE on DOS: 05/15/24, XY CHEST XRAY 1 VIEW on DOS: 05/09/24, XY CHEST XRAY 1 VIEW on DOS: 01/19/24, XY CHEST XRAY 1 VIEW on DOS: 10/05/23 FINDINGS: Lungs are clear. Cardiomediastinal silhouette is normal in size. Calcification of the aortic arch. St atus post median sternotomy. No acute osseus abnormality. IMPRESSION: 1. No acute cardio pulmonary findings
[2025-05-01 15:56] VITALS: BP 136/100; PULSE 72; RESP 18; TEMP 98.4; O2SAT 98
== END 2025-05-01 16:04 | disposition home or self-care (01) ==
LOC: EDBD 11:24 → ER 11:24
DX: I20.0 Unstable angina (principal); R07.89 Other chest pain; I11.0 Hypertensive heart disease with heart failure; I50.9 Heart failure, unspecified; E11.9 Type 2 diabetes mellitus without complications; E78.5 Hyperlipidemia, unspecified; I25.2 Old myocardial infarction; Z98.890 Other specified postprocedural states; Z90.49 Acquired absence of other specified parts of digestive tract; Z79.899 Other long term (current) drug therapy; Z88.0 Allergy status to penicillin
CPT/HCPCS: 36415; 71045; 80048; 84484; 85025; 93005

== ENCOUNTER 2025-05-19 21:46 | Emergency (ER) | payer OTHER, MEDICAID ==
[~2025-05-19] VITALS: Ht 170.2 cm; Wt 86.0 kg
[2025-05-19 22:29] LABS: Hematocrit 39.1 % (41.0-53.0); Hemoglobin 13.2 g/dL (13.5-17.5); Mean Corpuscular Hemoglobin 29.5 pg (28.0-32.0); Mean Corpuscular Volume 87.3 fL (80.0-100.0); Nucleated Red Blood Cells % 0.1 %
[2025-05-19 22:38] LABS: Chloride 103 mmol/L (98-107); Potassium 3.8 mmol/L (3.5-5.1); Sodium 138 mmol/L (136-145)
[2025-05-19 22:39] LABS: Anion Gap 9 (5-15); Calcium 9.7 mg/dL (8.7-10.4); Carbon Dioxide 26 mmol/L (20-31)
[2025-05-19 22:44] VITALS: PULSE 69; RESP 18; O2SAT 97
[2025-05-19 22:44] LABS: BUN/Creatinine Ratio 21.2 (10.0-20.0); Blood Urea Nitrogen 18 mg/dL (9-23)
--- NOTE | 2025-05-19 22:46 | DVH ---
CHEST RADIOGRAPH Indication: Chest pain Technique: Single frontal view of the chest was obtained Comparison: XY CHEST PORTABLE on DOS: 05/01/25, XY CHEST PORTABLE on DOS: 03/27/25, XY CHEST PORTABLE o n DOS: 05/15/24 FINDINGS: Lines and Tubes: Sternal wire sutures are in place. Lungs: No focal consolidation. Questionable pulmonary vascular congestion. Pleura: No effusion. No pneumothorax. Cardiomediastinal contours: Cardiomegaly Bones: No acute osseous abnormality. IMPRESSION: 1. Findings may represent congestive failure correlate with the clinical setting.
--- NOTE | 2025-05-19 22:51 | ED.PDOC ---
HPI Comments 89-year-old male who came to ER via EMS for chest pains. Patient has extensive cardiac history including hypertension, diabetes, CHF, OK, status post cardiac stents, CABG. Patient states he has ran out of his nitro since yesterday. At around 6:00 p.m. today, she started developing sharp left-sided chest pains, 7/10 intensity associated with shortness a breath. Upon arrival of paramedics, patient was given nitro and chest pain improved to 3/10. He denies any nausea or vomiting, denies any diaphoresis. States pain is not similar to when he had a heart attack. Chief Complaint: Chest Pain Time Seen by MD: 22:49 Primary Care Provider: HYUN Reviewed Notes: Harness Mender Notes Allergies: Coded Allergies: Celecoxib (Verified Allergy, Unknown, 11/24/18) Esomeprazole (Verified Allergy, Unknown, 11/24/18) Iodine (Verified Allergy, Unknown, 11/06/18) Penicillins (Verified Allergy, Unknown, 11/24/18) Home Meds Active Scripts Polyethylene Glycol 3350 (Miralax) 17 Gm Pow, 17 GM PO BID PRN for 30 Days, #30 POW 2 Refills Take twice a day, 17gm as needed for constipation. Prov:BHUPINDER PUENTES DO 05/12/24 Metoprolol Tartrate (Lopressor) 25 Mg Tb, 25 MG PO Q12HR for 90 Days, #180 TAB 0 Refills Prov:CARY HANCOCK MD 06/17/23 Lisinopril (Lisinopril) 5 Mg Tab, 2.5 MG PO DAILY for 90 Days, #45 TAB 0 Refills Prov:CARY HANCOCK MD 06/17/23 Aspirin (Aspirin Low Dose) 81 Mg Tab, 81 MG PO DAILY for 90 Days, #90 TAB 0 Refills Prov:CARY HANCOCK MD 06/17/23 Clopidogrel Bisulfate (CLOPIDOGREL) 75 Mg Tab, 75 MG PO DAILY for 90 Days, #90 TAB 0 Refills Prov:CARY HANCOCK MD 06/17/23 Reported Medications Hydrocodone-Acetaminophen (Hydrocodone Bitartrate/AC 5-325 mg) 1 Tab Tab, 1 TAB PO Q8HR PRN for PAIN 05/11/24 Carvedilol (Carvedilol) 3.125 Mg Tab, 3.125 MG PO BID, MG 10/06/23 Finasteride (Finasteride) 5 Mg Tab, 5 MG PO DAILY, MG 10/06/23 Simvastatin (Simvastatin) 10 Mg Tab, 2 TAB PO QPM, #90 TAB 3 Refills 10/06/23 Mirabegron Base (MYRBETRIQ) 50 Mg Tab, 50 MG PO DAILY, TAB 04/10/22 Bisacodyl (Bisacodyl Ec) 5 Mg Tab, 5 MG PO DAILY, TAB 04/10/22 Sitagliptin Phosphate (Januvia) 100 Mg Tab, 100 MG PO DAILY, TAB 04/10/22 Metformin Hydrochloride (Metformin Hcl) 500 Mg Tab, 1000 MG PO BID for 30 Days, MG 04/10/22 Pioglitazone Hydrochloride (ACTOS TABLET) 30 Mg Tb, 30 MG PO DAILY, TAB 04/10/22 Tamsulosin HCl (Tamsulosin Hydrochloride) 0.4 Mg Cap, 0.4 MG PO DAILY, CAP 04/10/22 Gabapentin (Gabapentin) 600 Mg Tab, 1 TAB PO BID, #90 TAB 3 Refills 11/25/18 Fluoxetine Hcl (Fluoxetine Hcl) 10 Mg Tab, 10 MG PO QAM 11/25/18 Information Source: Patient Mode of Arrival: EMS Severity: Moderate Timing: Hours Duration: Intermittent Prehospital treatment: None Location: Substernal Radiation: No Radiation Quality: Sharp Onset: With Light Exertion Cardiac Risk Factors: HTN, Diabetes PE Risk Factors: None History of: Similar pain in past, OK Associated Signs and Symptoms: SOB Review of Systems REVIEW OF SYSTEMS: No fever, no chills, or fatigue HEENT: No sore throat, no earache, no congestion, no neck pain. Cardiac: (+) chest pain. No palpitations. Lungs: No shortness of breath, no cough. GI: No nausea, no vomiting, no diarrhea, no constipation, no abdominal pain : No dysuria, frequency, or urgency. No hematuria. Musculoskeletal: No joint pain , no joint swelling, no extremity edema. Skin: No rash, no itching. Neuro: No headache, no dizziness, no weakness Vital Signs Vital Signs Date Time Temp Pulse Resp B/P (MAP) Pulse Ox O2 Delivery O2 Flow Rate FiO2 05/20/25 02:20 98.1 80 18 142/78 (99) 97 98.1 05/19/25 22:44 Room Air* 0 21 Physical Exam General: Awake, alert and oriented. No acute distress. Skin: Skin in warm, dry and intact. Appropriate color for ethnicity. Nailbeds pink with no cyanosis. HEENT: The head is normocephalic and atraumatic. Conjunctivae are clear without exudates or hemorrhage. Sclera is non-icteric. EOM are intact. No signs of nystagmus. Eyelids are normal in appearance without swelling or lesions. Oral mucosa is pink and moist Neck: The neck is supple with normal range of motion. No JVD. Cardiac: Heart rate and rhythm are normal. No murmurs, gallops, or rubs are auscultated. Respiratory: No signs of respiratory distress. Lung sounds are clear in all lobes bilaterally without rales, rhonchi, or wheezes. Abdominal: Abdomen is soft, non-tender without distention. Bowel sounds are present and normoactive in all four quadrants. Extremities: Upper and lower extremities are atraumatic in appearance without deformity or edema. Neurological: The patient is awake, alert and oriented to person, place, and time with normal speech. Speech is clear. There is no facial asymmetry. Psychiatric: Appropriate mood and affect. Good judgement and insight. No visual or auditory hallucinations. Past Medical History PAST MEDICAL HISTORY: Asthma, Cancer, CHF, COPD, DM, GERD, HTN, OK, Thyroid Surgical History: Appendectomy, CABG, Hernia Repair, PTCA Family History Family History: Reviewed,noncontributory to illness Social History Smoker: Non-Smoker Alcohol: Denies ETOH Use Drugs: Denies Drug Use Lives In: Home EKG EKG : Pulse Rate (adult): 70 Cardiac Rhythm: NSR Block: RBBB Was a procedure done? Was a procedure done?: No CP Differential Dx Differential Diagnosis: Angina, Anxiety / Panic Attack, Electrolyte Disorder Differential Diagnosis: CHF, HTN Essential Differential Diagnosis: Angina, Chest Wall Pain, Costochondritis, Esophageal reflux/spasm, Gastritis, Myocardial Infarction X-Ray, Labs, Meds, VS Vital Signs Date Time Temp Pulse Resp B/P (MAP) Pulse Ox O2 Delivery O2 Flow Rate FiO2 05/20/25 02:20 98.1 80 18 142/78 (99) 97 98.1 05/19/25 22:51 70 05/19/25 22:46 67 05/19/25 22:44 98.1 69 18 143/74 (97) 98 98.1 05/19/25 22:44 69 18 97 Room Air* 0 21 05/19/25 21:48 70 05/19/25 21:46 97.8 71 18 149/73 (98) 95 97.8 Lab Test 05/20/25 01:39 05/19/25 23:45 05/19/25 22:22 Range/Units Troponin I High Sensitivity 11 12 9 </=54 ng/L White Blood Count 8.0 4.4-10.8 10^3/uL Red Blood Count 4.48 L 4.5-5.90 10^6/uL Hemoglobin 13.2 L 13.5-17.5 g/dL Hematocrit 39.1 L 41.0-53.0 % Mean Corpuscular Volume 87.3 80.0-100.0 fL Mean Corpuscular Hemoglobin 29.5 28.0-32.0 pg Mean Corpuscular Hemoglobin Concent 33.8 32.0-36.0 g/dL Red Cell Distribution Width 14.4 H 11.8-14.3 % Platelet Count 205 140-450 10^3/uL Mean Platelet Volume 6.8 L 6.9-10.8 fL Neutrophils (%) (Auto) 57.1 37.0-80.0 % Lymphocytes (%) (Auto) 28.4 10.0-50.0 % Monocytes (%) (Auto) 11.1 0.0-12.0 % Eosinophils (%) (Auto) 2.2 0.0-7.0 % Basophils (%) (Auto) 1.2 0.0-2.0 % Neutrophils # (Auto) 4.6 1.6-8.6 10 ^3/uL Lymphocytes # (Auto) 2.3 0.4-5.4 10 ^3/uL Monocytes # (Auto) 0.9 0-1.3 10 ^3/uL Eosinophils # (Auto) 0.2 0-0.8 10 ^3/uL Basophils # (Auto) 0.1 0-0.2 10 ^3/uL Nucleated Red Blood Cells 0.1 % Sodium Level 138 136-145 mmol/L Potassium Level 3.8 3.5-5.1 mmol/L Chloride Level 103 98-107 mmol/L Carbon Dioxide Level 26 20-31 mmol/L Anion Gap 9 5-15 Blood Urea Nitrogen 18 9-23 mg/dL Creatinine 0.85 0.700-1.30 mg/dL Glomerular Filtration Rate Calc 84 >90 mL/min BUN/Creatinine Ratio 21.2 H 10.0-20.0 Serum Glucose 107 H 74-106 mg/dL Calcium Level 9.7 8.7-10.4 mg/dL B-Type Natriuretic Peptide 89.00 0-100 pg/mL CHEST RADIOGRAPH Indication: Chest pain Technique: Single frontal view of the chest was obtained Comparison: XY CHEST PORTABLE on DOS: 05/01/25, XY CHEST PORTABLE on DOS: 03/27/25, XY CHEST PORTABLE on DOS: 05/15/24 FINDINGS: Lines and Tubes: Sternal wire sutures are in place. Lungs: No focal consolidation. Questionable pulmonary vascular congestion. Pleura: No effusion. No pneumothorax. Cardiomediastinal contours: Cardiomegaly Bones: No acute osseous abnormality. IMPRESSION: 1. Findings may represent congestive failure correlate with the clinical setting. Time of 1ST Reevaluation: 22:46 Reevaluation 1ST: Unchanged Patient Education/Counseling: Prognosis, Need For Follow Up Family Education/Counseling: No Family Present SEPSIS Sepsis Screen Date sepsis recognized/suspect: May 19, 2025 Time Sepsis recognized/suspect: 2145 Recent Procedure: No On Antibiotic Therapy: No Respiratory Rate >20: No Heart Rate >90: No Temp<36 C (96.8 F) or >38.3 C: No SBP <90 or MAP <65 mmHG: No New Acute Mental Status Change: No Is the patient on CPAP, BIPAP,: No Physician Orders Electrocardigram (05/19/25 21:52) Electrocardigram (05/19/25 22:52) Electrocardigram (05/20/25 00:52) Chest Xray 1 View (05/19/25 22:08) Discharge (05/20/25 01:21) Vital Signs Date Time Temp Pulse Resp B/P (MAP) Pulse Ox O2 Delivery O2 Flow Rate FiO2 05/20/25 02:20 98.1 80 18 142/78 (99) 97 98.1 05/19/25 22:51 70 05/19/25 22:46 67 05/19/25 22:44 98.1 69 18 143/74 (97) 98 98.1 05/19/25 22:44 69 18 97 Room Air* 0 21 05/19/25 21:48 70 05/19/25 21:46 97.8 71 18 149/73 (98) 95 97.8 Laboratory Tests Test 05/19/25 22:22 White Blood Count 8.0 10^3/uL (4.4-10.8) Departure 1 Departure Time of Disposition: 02:30 Impression: Primary Impression: Chest pain Disposition: ADMITTED INPATIENT Condition: Stable Comments 89-year-old male with extensive cardiac history presents with chest pain relieved by nitroglycerin. Case was discussed with Dr. Quinones with request for admission for further treatment, observation and evaluation. At this time Dr. Quinones is declining the admission and we will discharge patient Extensive evaluation was performed in attempt to identify or rule out: (See differential diagnosis section) The following tests were ordered, and results were reviewed by me and discussed with patient: (See diagnostic results section) The following test were independently interpreted by me: EKG I reviewed and agreed with the following test results read by other providers: Chest x-ray I reviewed the following notes from the pt's past medical encounters: N/A Additional information was gathered from interviewing the following independent historians: EMS personnel Discussion of management or test interpretation with external physician/other qualified health career services officer: Dr. Quinones Addressed an acute or chronic illness that poses a threat to life or bodily function: Unstable angina Decision regarding hospitalization or escalation of hospital level of care: Risk and benefits of admission for further treatment of patient's condition was considered. Due to patient's current clinical condition, high risk of decline and poor outcome if discharged and need for further inpatient management and monitoring, patient will be admitted to the hospital. Discussed with patient. Drug therapy requiring intensive monitoring for toxicity: N/A Parenteral controlled substances: N/A Decision regarding elective major surgery with identified patient or procedure risk factors: N/A Decision regarding emergency major surgery: N/A Decision not to resuscitate or to de-escalate care because of poor prognosis: N/A Diagnosis or treatment significantly limited by social determinants of health: N/A Critical Care Note Critical Care Time?: Yes (35 min-critical care time only) Critical care comment: Acute chest pains Stability Stability form required: No Heart Score Heart Score: Heart Score Response (Comments) Value History Moderate Suspicious 1 EKG Repolarization Disturb 1 Age >65 2 Risk Factors >3 or Hx ASHD 2 Troponin Normal limit 0 Total 6 I personally scribed for BETY GRAY MD ([email or web address]) on 05/19/25 at 22:51. Electronically submitted by Mitesh Stringer ([email or web address]). I personally scribed for BETY GRAY MD ([email or web address]) on 05/19/25 at 23:19. Electronically submitted by Mitesh Stringer (Teikon). BETY GRAY MD May 19, 2025 22:51
[2025-05-19 22:56] LABS: Glucose 107 mg/dL (74-106)
[2025-05-20 02:20] VITALS: BP 142/78; PULSE 80; RESP 18; TEMP 98.1; O2SAT 97
--- NOTE | 2025-05-20 04:22 | ECG ---
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
--- NOTE | 2025-05-20 07:28 | ECG ---
[facility] Test Date: 2025-05-19 Test Time: 21:48:39 Pat Name: CEE ORNELAS Department: ED Room: Gender: M Umbrella Tipper: derick : 1935 Requested By: BETY GRAY Order Number: [id number] Reading MD: Aguilar Forde Measurements Intervals [place] Rate: 70 P: 12 WI: 211 QRS: -20 QRSD: 153 T: 36 QT: 441 QTc: 476 Interpretive Statements Sinus rhythm Right bundle branch block Electronically Signed On 05-23-2025 18:35:33 PDT by Aguilar Forde Please click the below link to view image of tracing.
--- NOTE | 2025-05-20 23:36 | DVHDS2 ---
Physician Discharge Progress N Final Diagnosis: Chest pain resolved, ACS ruled out Operations or Procedures: Operations or Procedures none Other Interventions Other Interventions lab results, EKG, CXR Consultations: Consultations none Commentary: Commentary 89 y.o. 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 Patient was given NTG by food and nutrition professor and his pain subsided. In the ER patient was symptoms free with stable VS and negative troponin x3. His labs, EKG were unremarkable. Patient was discharged home to follow with his component technician. [facility] will schedule and coordinate the appointment with the patient tomorrow. Condition on Discharge: Stable Disposition: Home SNF Discharge Will this Physician continue t: No Discharge Instructions: Diet: Regular Activity: No Restrictions, As Tolerated Follow Up/Referral: Outpatient component technician appointment will be scheduled by [facility] field nurse case manager Medications: continue home medications Follow Up Care: Discharge Statement: "Patient was advised to return to the ER or call 911 if any headaches, dizziness, shortness of breath, chest pain, abdominal pain, bleeding, fevers, or worsening of medical condition. Patient was counseled about treatment plan, medications, possible side effects, patientverbalized understanding. All questions were answered to the best of my ability. This discharge took greater then 30 minutes in planning, reviewing documentation, counseling the patient, and discussing with other team members." SLIME TROTTER MD May 20, 2025 23:36
== END 2025-05-20 02:38 | disposition home or self-care (01) ==
LOC: ER 21:46 → EDBD 21:46 → ER 05-20 02:37
DX: R07.89 Other chest pain (principal); I11.0 Hypertensive heart disease with heart failure; E11.9 Type 2 diabetes mellitus without complications; I50.9 Heart failure, unspecified; E03.9 Hypothyroidism, unspecified; K21.9 Gastro-esophageal reflux disease without esophagitis; I25.2 Old myocardial infarction; Z79.82 Long term (current) use of aspirin; Z79.84 Long term (current) use of oral hypoglycemic drugs; Z79.899 Other long term (current) drug therapy; Z90.49 Acquired absence of other specified parts of digestive tract; Z95.1 Presence of aortocoronary bypass graft; Z95.5 Presence of coronary angioplasty implant and graft; Z98.890 Other specified postprocedural states; Z88.0 Allergy status to penicillin; Z88.8 Allergy status to other drugs, medicaments and biological substances
CPT/HCPCS: 36415; 71045; 80048; 83880; 84484; 85025; 93005